=== PATIENT | female | born 1950 | race Caucasian/White ===

== ENCOUNTER → 2019-12-14 | Day surgery (SDC) | payer MEDICARE, OTHER ==
[~2019-12-14] MED LIST: AMLODIPINE BESYL5 MG PO; ASPERCREME LI76.5 GM TOP; ASPIRIN81 MG PO; BALANCED SALT SOLN (OPTH) 15 ML BTL IO ONE; CALCET TABLET1 EACH PO; CLOPIDOGREL75 MG PO; CO Q-10100 MG PO; CRESTOR10 MG PO; FENOFIBRATE145 MG PO; FISH OIL 1,2001 EAC1 PO; GAS RELIEF125 M1 PO; IBANDRONATE SO150 MG PO; ISOSORBIDE MONO30 MG PO; LAXATIVE5 M1 PO; LEVOTHYROXINE50 MCG PO; LIDOCAINE 2% /EPINEPHRINE 20 ML SDV INJ ONE; LIDOCAINE HCL 2% LOCAL INJ 5 ML SDV VIAL INJ ONE; LORATADINE10 M1 PO; LOSARTAN POTAS100 MG PO; METOPROLOL SUCC50 MG PO; METOPROLOL TART25 MG PO; MIDAZOLAM HCL 2 MG/2 ML VIAL ONE; MULTI-VITAMIN1 EACH PO; NEOMYCIN/POLYMYXIN/DEX (OPTH) 3.5 GM TUBE ONE; NITROGLYCERIN0.4 MG SL; NORCO 10-325 T1 EACH PO; POVIDONE IODINE 5% (OPTH) 30 ML BTL ONE; RANITIDINE HCL150 M1 PO; SERTRALINE HCL50 MG PO; STOOL SOFTENER100 M1 PO; VITAMIN B-121000 MC2 PO; VITAMIN D400 UNI1 PO; VITAMIN E400 UNI2 PO; [UNRECOGNIZED DRUG - OTHER] TOP
[2019-12-14 15:57] VITALS: BP 131/69
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
--- OUTSIDE RECORDS SUMMARY | 2019-12-14 19:35 | XMS REPORT | Encounter Summary ---
Author Organization Unknown Address [address] [place] [address] Phone [phone] Reason for Visit Follow Up Visit Instructions 1. Serous otitis media tympanogram prednisone 10 mg tablet 2. Hearing loss 3. Otalgia 4. Tinnitus 5. Allergic rhinitis 6. Nasal obstruction Discussion Note: None recorded. Patient educational handouts: No information available. Plan of Care Patient Instructions Patient discharged with the following per Dr. Jay Arrange hearing test Follow up in 1-2 weeks for left ear tube If any other problems patient is to call my office Patient verbalized understanding the instructions given along with my office staff Reminders Provider Appointments Hearing Test 11/13/2018 8:00AM Hearing Test, Lab None recorded. Referral None recorded. Procedures None recorded. Surgeries None recorded. Imaging Tympanogram 10/30/2018 In-House Results Medications Name Start Date Aspirin Low Dose 81 mg tablet,delayed release Take 1 tablet every day by oral route. chlorhexidine gluconate 0.12 % mouthwash clopidogrel 75 mg tablet fenofibrate nanocrystallized 145 mg tablet fluticasone 50 mcg/actuation nasal spray,suspension [place] 1 spray twice a day by intranasal route for 30 days. hydrocodone 7.5 mg-acetaminophen 325 mg tablet isosorbide mononitrate ER 30 mg tablet,extended release 24 hr levothyroxine 50 mcg tablet lisinopril 10 mg-hydrochlorothiazide 12.5 mg tablet lorazepam 1 mg tablet metoprolol succinate ER 25 mg tablet,extended release 24 hr [place] 25 mg tablet nitroglycerin 0.4 mg sublingual tablet [place] 0.7 % eye drops prednisone 10 mg tablet TAKE 1 TABLET TWICE A DAY FOR 7 DAYS THEN ONCE A DAY FOR 7 DAYS sertraline 50 mg tablet Ventolin HFA 90 mcg/actuation aerosol inhaler Medications Administered None recorded. Vitals Height Weight BMI 5 ft 144 lbs 28.1 kg/m2 Lab Results Date Name Specimen Result Interpretation Description Value Range Status Address 10/30/2018 Tympanogram Right Type A Normal In-House Results: For Internal Use Only Left Type C Peak is on Left In-House Results: For Internal Use Only Allergies Code Code System Name Reaction Severity Status Onset 20331211 RxNorm Fortaz Active 677366 RxNorm Lipitor Facial Swelling Active 546440 RxNorm Mevacor Nausea Active 8640 RxNorm Prednisone Nausea Active Problems None recorded. Procedures Date Name Performed by 06/10/2010 Nasal Surgery Information not available Remove Tonsils and Adenoids Information not available Cataract Surgery Complex Information not available Removal of Tonsils Information not available Ear Surgery Information not available Heart Surgery Information not available 10/30/2018 Tympanogram In-House Results For Internal Use Only [address] Vaccine List None recorded. Social History Smoking Status Never Smoker Past Encounters 10/30/2018 Serous Otitis Media; Hearing Loss; Otalgia; Tinnitus; Allergic Rhinitis; Nasal Obstruction Julia Jay MD: [address] [place] [address], [address], [place] [address], Ph. History of Present Illness None recorded. Review of Systems ENT ROS Reported By: Patient ENMT: ENMT: ear pain, hearing loss, sinus pressure, runny nose Physical Exam None recorded.
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
--- OUTSIDE RECORDS SUMMARY | 2019-12-14 19:35 | XMS REPORT | Encounter Summary ---
Author Organization Unknown Address [address] [place] [address] Phone [phone] Reason for Visit congestion; fever; cough / wheezing Instructions 1. Influenza-like symptoms rapid flu (A+B) CBC w/ auto diff promethazine 6.25 mg-codeine 10 mg/5 mL syrup Discussion Note: None recorded. Patient educational handouts: No information available. Plan of Care Reminders Provider Appointments Follow up 04/01/2019 9:45AM Julia Jay MD Lab Rapid Flu (A+B) 01/21/2019 In-House Results CBC W/ Auto Diff 01/21/2019 [facility] (Lab) Referral None recorded. Procedures None recorded. Surgeries None recorded. Imaging None recorded. Medications Name Start Date Aspirin Low Dose 81 mg tablet,delayed release Take 1 tablet every day by oral route. Ciprodex 0.3 %-0.1 % ear drops,suspension INSTILL 4 DROPS INTO AFFECTED EAR(S) BY OTIC ROUTE 2 TIMES PER DAY FOR 7 DAYS clopidogrel 75 mg tablet fenofibrate nanocrystallized 145 mg tablet fluticasone propionate 50 mcg/actuation nasal spray,suspension [place] 1 spray twice a day by intranasal route for 30 days. isosorbide mononitrate ER 30 mg tablet,extended release 24 hr levothyroxine 50 mcg tablet lisinopril 10 mg-hydrochlorothiazide 12.5 mg tablet lorazepam 1 mg tablet metoprolol succinate ER 25 mg tablet,extended release 24 hr nitroglycerin 0.4 mg sublingual tablet Pazeo 0.7 % eye drops promethazine 6.25 mg-codeine 10 mg/5 mL syrup Take 5 mL every 6 hours by oral route. TAKE NEEDED FOR COUGH AND HEADACHE sertraline 50 mg tablet Ventolin HFA 90 mcg/actuation aerosol inhaler Medications Administered None recorded. Vitals Height Weight BMI Blood Pressure 60 in 143 lbs 27.9 kg/m2 137/83 mm[Hg] Lab Results None recorded. Allergies Code Code System Name Reaction Severity Status Onset 20331211 RxNorm Fortaz Active 172938 RxNorm Lipitor Facial Swelling Active 880537 RxNorm Mevacor Nausea Active 8640 RxNorm Prednisone Nausea Active Problems Name Status Onset Date Source Influenza-like Symptoms Active 01/21/2019 Procedures Date Name Performed by 06/10/2010 Nasal Surgery Information not available Remove Tonsils and Adenoids Information not available Cataract Surgery Complex Information not available Removal of Tonsils Information not available Ear Surgery Information not available Heart Surgery Information not available Vaccine List Vaccine Type influenza, injectable, quadrivalent 08/12/2019 Social History Smoking Status Never Smoker Past Encounters 01/21/2019 Influenza-like Symptoms Ivan Machado MD: [address] [place] [address], [address], [place] [address], Ph. History of Present Illness Note:CC HEADACHE AND 103 FEVER<div>HPI STARTED LAST NIGHT HAS HAD A COUGH FOR A FEW DAYS DEVELOPED A RASH AFTER TAKING A HOT BATH </div><div>ROS</div><div>GEN ABOVE</div><div>CV NO CP</div><div>RESP SLIGHT COUGH</div><div>M/S MYALGIAS</div > Review of Systems:ROS as noted in the HPI Review of Systems None recorded. Physical Exam Dr. Machado Brief Adult Exam - M/F Reported By: Patient Constitutional: General Appearance: healthy-appearing, well-nourished, well-developed. Level of Distress: mild distress, acutely ill. Ambulation: ambulating normally ENMT: Ears: no lesions on external ear, EACs clear, TMs clear, TM mobility normal. Nose: nares patent, nasal passages clear. Oropharynx: moist mucous membranes, no erythema, no exudates, tonsils not enlarged Lungs: Auscultation: breath sounds normal, good air movement, CTA except as noted, no wheezing, no rales/crackles, no rhonchi Cardiovascular: Heart Auscultation: RRR, no rubs Skin: Inspection and palpation: ; VIRAL EXANTHAM ON BOTH PRETIBIAL AREAS
--- OUTSIDE RECORDS SUMMARY | 2019-12-14 19:35 | XMS REPORT | Encounter Summary ---
Author Organization Unknown Address [address] [place] [address] Phone [phone] Reason for Visit Follow Up Visit Instructions 1. Otitis externa 2. Otalgia Ciprodex 0.3 %-0.1 % ear drops,suspension 3. Tinnitus tympanogram Discussion Note: None recorded. Patient educational handouts: No information available. Plan of Care Patient Instructions Patient discharged with the following instructions per Dr. Jay Patient is to keep the left ear dry while showering no water or shampoo to enter the ear Use Ciprodex ear drops bid for 1 week in the right ear Follow up 4 month If symptoms are still persistent mother is to call the office Patient verbalized understanding the instructions given along with my office Reminders Provider Appointments Follow up 04/01/2019 9:45AM Julia Jay MD Lab None recorded. Referral None recorded. Procedures None recorded. Surgeries None recorded. Imaging Tympanogram 12/10/2018 In-House Results Medications Name Start Date Aspirin Low Dose 81 mg tablet,delayed release Take 1 tablet every day by oral route. chlorhexidine gluconate 0.12 % mouthwash Ciprodex 0.3 %-0.1 % ear drops,suspension INSTILL 4 DROPS INTO AFFECTED EAR(S) BY OTIC ROUTE 2 TIMES PER DAY FOR 7 DAYS clopidogrel 75 mg tablet fenofibrate nanocrystallized 145 mg tablet fluticasone 50 mcg/actuation nasal spray,suspension [place] 1 spray twice a day by intranasal route for 30 days. hydrocodone 7.5 mg-acetaminophen 325 mg tablet isosorbide mononitrate ER 30 mg tablet,extended release 24 hr levothyroxine 50 mcg tablet lisinopril 10 mg-hydrochlorothiazide 12.5 mg tablet lorazepam 1 mg tablet metoprolol succinate ER 25 mg tablet,extended release 24 hr [place] 25 mg tablet nitroglycerin 0.4 mg sublingual tablet Pazeo 0.7 % eye drops sertraline 50 mg tablet Ventolin HFA 90 mcg/actuation aerosol inhaler Medications Administered None recorded. Vitals Height Weight BMI 5 ft 144 lbs 28.1 kg/m2 Lab Results Date Name Specimen Result Interpretation Description Value Range Status Address 11/13/2018 Tympanogram Right Type A Normal In-House Results: For Internal Use Only Left Type B Curve Flat In-House Results: For Internal Use Only Tympanogram Right Type A Normal In-House Results: For Internal Use Only Allergies Code Code System Name Reaction Severity Status Onset 20331211 RxNorm Fortaz Active 512927 RxNorm Lipitor Facial Swelling Active 101717 RxNorm Mevacor Nausea Active 8640 RxNorm Prednisone Nausea Active Problems No Known Problems Procedures Date Name Performed by 06/10/2010 Nasal Surgery Information not available Remove Tonsils and Adenoids Information not available Cataract Surgery Complex Information not available Removal of Tonsils Information not available Ear Surgery Information not available Heart Surgery Information not available 11/13/2018 Tympanogram In-House Results For Internal Use Only [address] 12/10/2018 Tympanogram In-House Results For Internal Use Only [address] Vaccine List None recorded. Social History Smoking Status Never Smoker Past Encounters 12/10/2018 Otitis Externa; Otalgia; Tinnitus Julia Jay MD: [address] [facility], [address], [place] [address], Ph. 11/13/2018 Serous Otitis Media; Hearing Loss; Otalgia; Tinnitus; Allergic Rhinitis; Nasal Obstruction Julia Jay MD: [address] [facility], [address], [place] [address], Ph. History of Present Illness None recorded. Review of Systems ENT ROS Reported By: Patient ENMT: ENMT: ear pain, hearing loss, sinus pressure, runny nose; Tube still present in left ear Physical Exam None recorded.
--- OUTSIDE RECORDS SUMMARY | 2019-12-14 19:35 | XMS REPORT | Encounter Summary ---
Author Organization Unknown Address [address] [place] [address] Phone [phone] Reason for Visit Follow Up Visit Instructions 1. Serous otitis media 2. Hearing loss 3. Otalgia 4. Tinnitus tympanogram 5. Allergic rhinitis 6. Nasal obstruction Discussion Note: None recorded. Patient educational handouts: No information available. Plan of Care Patient Instructions Patient discharged with the following per Dr. Jay Patient is to keep the ear dry while showering no water or shampoo to enter the ear Use Ciprodex or Vinegar as needed Follow up in 2-3 months If any other problems patient is to call my office Patient verbalized understanding the instructions given along with my office staff Reminders Provider Appointments Follow up 02/11/2019 9:30AM Julia Jay MD Lab None recorded. Referral None recorded. Procedures None recorded. Surgeries None recorded. Imaging Tympanogram 11/13/2018 In-House Results Medications Name Start Date Aspirin Low Dose 81 mg tablet,delayed release Take 1 tablet every day by oral route. chlorhexidine gluconate 0.12 % mouthwash clopidogrel 75 mg tablet fenofibrate nanocrystallized 145 mg tablet fluticasone 50 mcg/actuation nasal spray,suspension [place] 1 spray twice a day by intranasal [...] recorded. Vitals Height Weight BMI 5 ft 143.4 lbs 28 kg/m2 Lab Results Date Name Specimen Result Interpretation Description Value Range Status Address 11/13/2018 Tympanogram Right Type A Normal In-House Results: For Internal Use Only Left Type B Curve Flat In-House Results: For Internal Use Only 10/30/2018 Tympanogram Right Type A Normal In-House Results: For Internal Use Only Left Type C Peak is on Left In-House Results: For Internal Use Only Allergies Code Code System Name Reaction Severity Status Onset 540784 RxNorm Fortaz Active 985967 RxNorm Lipitor Facial Swelling Active 602548 RxNorm Mevacor Nausea Active 8640 RxNorm Prednisone Nausea Active Problems None recorded. Procedures Date Name Performed by 06/10/2010 Nasal Surgery Information not available Remove Tonsils and Adenoids Information not available Cataract Surgery Complex Information not available Removal of Tonsils Information not available Ear Surgery Information not available Heart Surgery Information not available 10/30/2018 Tympanogram In-House Results For Internal Use Only [address] 11/13/2018 Tympanogram In-House Results For Internal Use Only [address] Vaccine List None recorded. Social History Smoking Status Never Smoker Past Encounters 11/13/2018 Serous Otitis Media; Hearing Loss; Otalgia; Tinnitus; Allergic Rhinitis; Nasal Obstruction Julia Jay MD: [address] [facility], [address], [place] [address], Ph. 10/30/2018 Serous Otitis Media; Hearing Loss; Otalgia; Tinnitus; Allergic Rhinitis; Nasal Obstruction Julia Jay MD: [address] [facility], [address], [place] [address], Ph. History of Present Illness None recorded. Review of Systems ENT ROS Reported By: Patient ENMT: ENMT: ear pain, hearing loss, sinus pressure, runny nose Physical Exam ENT Exam [facility] Focus-No Stethoscope Reported By: Patient Ears: Right Hearing: Rinne AC>BC, Wilcox midline. Left Hearing: Rinne AC>BC, Wilcox midline. Right External ear: normally formed, free of lesions. Left External ear: normally formed, free of lesions. Right External auditory canal: normal appearance, no obstruction, no erythema, no discharge. Left External auditory canal: normal appearance, no obstruction, no erythema, no discharge. Right Tympanic membrane: mobile with pneumatic otoscopy, pearly landry, landmarks clear. Left Tympanic membrane: landmarks clear, erythematous, retracted, dull, serous effusion, mobility decreased
--- OUTSIDE RECORDS SUMMARY | 2019-12-14 19:35 | XMS REPORT ---
Author Author [facility] Address Unknown Phone Unavailable Care Team Providers Care Equal Opportunity Counselor Name Role Phone Nahum Anne Unavailable Unavailable Problems This patient has no known problems. Allergies, Adverse Reactions, Alerts This patient has no known allergies or adverse reactions. Medications This patient has no known medications. Results Test Description Test Time Test Comments Text Results Atomic Results Result Comments Comprehensive metabolic panel 2016-12-04 14:18:00 Sodium level (test cfcz=RXR3089) 141 meq/L 135-145 4.9 Chloride measurement (test oope=BZX2953) 107 meq/L 101-111 Bicarbonate (test code=CO2) 29 meq/L 21-31 Glucose measurement (test wary=UUK2847) 98 mg/dL 65-120 ADA Clinical Practice Recommendation: <100 mg/dl=Normal Fasting Glucose BUN Bld-mCnc (test fkty=7376-9) 11 mg/dL 6-20 Creatinine measurement (test abxd=FGW2955) 0.77 mg/dL 0.44-1.00 The creatinine method used has been calibrated to be traceable to Isotope dilution Mass Spectrometry (IDMS). For more information: www.nkdep.nih.gov Estimated glomerular filtration rate (GFR) determination (test pujc=68723-5) 75 mL =/>90 FOR CHRONIC KIDNEY DISEASE: GFR STAGE DESCRIPTION=/>90 STAGE 1 NORMAL--OR-- MINIMAL KIDNEY DAMAGE WITH NORMAL GFR 60-89 STAGE 2 MILD DECREASE IN GFR 30-59 STAGE 3 MODERATE DECREASE IN GFR 15-29 STAGE 4 SEVERE DECREASE IN GFR <15 STAGE 5 KIDNEY FAILURE The Glomerular Filtration Rate (GFR) has been calculated using the IDMS-Traceable MDRD Study Equation. Aspartate aminotransferase (AST) measurement (test ktto=OOE7155) 22 [iU]/L 10-42 ALT/SGPT (test code=SGPT) 18 [iU]/L 10-60 Alkaline Phosphatase (test code=ALK) 49 [iU]/L 42-121 Bilirubin total (test ttkm=RDV6059) 0.6 mg/dL 0.3-1.2 Calcium Level (test code=CA) 9.8 mg/dL 8.5-10.5 Serum total protein measurement (test wvrj=0997-1) 6.8 g/dL 6.0-8.3 Albumin measurement (test bvbl=BTV9168) 4.4 g/dL 3.2-5.5 Globulin (test code=GLOB) 2.4 g/dL 2.3-3.5 Albumin/Globulin Ratio (test code=A/G) 1.8 1.1-1.8 Amylase [id number] 14:18:00* Test Item Value Reference Range Comments Amylase measurement (test qlkq=DYN9620) 77 U/L 28-100 Lipase [id number] 14:18:00* Test Item Value Reference Range Comments Lipase measurement (test dbas=5874-5) 27 U/L 22-51 Complete blood count (CBC) with automated white blood cell (WBC) differential 2016-12-04 13:53:00* Test Item Value Reference Range Comments White blood cell count (test umai=DVS2675) 6.5 4.3-10.9 Blood erythrocytes count (number/volume) (test jzsn=10988-2) 4.40 M/ul 3.86-4.86 Hemoglobin measurement (test jpsv=KBV1756) 13.0 g/dL 12.0-15.0 Blood hematocrit (volume fraction) (test cnec=31208-7) 39.7 % 36.0-45.0 MCV (test code=MCV) 90.2 fL 80-100 MCH (test xlmw=83254-2) 29.5 pg 27.0-35.0 MCHC (test code=MCHC) 32.8 g/dL 32.0-36.0 Platelets (test code=PLT) 274 152-406 Red Cell Distribution Width (test code=RDW) 13.4 % 12.1-15.2 Blood platelet mean volume (test jeij=46680-1) 8.4 fL 7.6-11.3 Neutrophils % (test code=NIKOLAI%) 51.4 % 41.7-73.7 Lymphocytes/leuk NFr Bld (test oxta=27173-5) 36.3 % 15.3-44.8 Monocyte percentage (test crtu=8235-4) 6.5 % 3.3-12.3 Eosinophil % (test vfdj=745-1) 4.8 % 0-4.4 Basophil % (test jvvk=209-0) 1.0 % 0-1.3 Absolute neutrophil count (test cgui=152-4) 3.3 2.3-7.0 Absolute lymphocyte count (test qjgl=80166-6) 2.3 0.8-3.6 Absolute monocyte count (test hlji=188-2) 0.4 0.2-0.8 Absolute Eosinophils (test code=EOA) 0.3 0-0.4 Absolute Basophils (test code=BASA) 0.1 0-0.1 Erythrocyte sedimentation rate (ESR) by Westergren [id number] 13:53:00* Test Item Value Reference Range Comments Erythrocyte sedimentation rate (ESR) by Westergren method (test mbcr=3758-8) 11 mm/HR 0-30
--- OUTSIDE RECORDS SUMMARY | 2019-12-14 19:36 | XMS REPORT | Summary of Care ---
Author Author [facility] - Health Organization [facility] - Health Address Unknown Phone Unavailable Care Team Providers Care [employer] Name Role Phone Arleen Jimenez MD PCP Reason for Visit * Reason Comments Medicare Annual Wellness LAB WORK Encounter Details Care Team Description Date Type Department Catia Ji, [facility] [address] [address] Medicare annual wellness visit, initial (Primary Dx) 06/18/2019 Office Visit [facility] [address] [id number] Allergies Comments Active Allergy Reactions Severity Noted Date Diclofenac-Misoprostol Unknown - See 06/14/2016 comments Liquid only Codeine Nausea and/or 06/14/2016 Vomiting Doxycycline Swelling 09/10/2018 Severe stomach pain Bisacodyl Other - See High 09/11/2018 comments Ceftazidime Unknown - See 06/14/2016 comments Muscle problems Atorvastatin Calcium Unknown - See 06/14/2016 comments Gemfibrozil Swelling 06/14/2016 Muscle aches Lovastatin Unknown - See 06/14/2016 comments Budesonide-Formoterol Swelling 09/10/2018 documented as of this encounter (statuses as of 06/18/2019) Medications End Date Status Medication Sig Dispensed Refills Start Date Active aspirin (ASPIRIN LOW Take 81 mg by 0 DOSE) 81 mg EC tablet mouth daily. Active DOCOSAHEXANOIC ACID/EPA Take by 0 (FISH OIL ORAL) mouth. Active MULTIVITAMIN WITH Take by 0 MINERALS (MULTIVITAMIN & mouth. MINERAL FORMULA ORAL) Active ranitidine (ZANTAC) 150 Take 150 mg 0 mg capsule by mouth 2 (two) times daily. Active clopidogrel (PLAVIX) 75 Take 1 tablet 90 tablet 1 mg tablet by mouth 6 daily. Active fluticasone 50 Use in each 0 mcg/actuation nasal spray nostril daily. Active vitamin e 400 unit Take 400 0 capsule Units by mouth daily. Active loratadine 10 mg tablet Take 10 mg by 0 mouth daily. Active lisinopril-hydrochlorothi Take 1 tablet 0 azide 10-12.5 mg per by mouth tablet daily. Active nitroglycerin 0.[address] 0.4 mg 0 sublingual tablet under the tongue every 5 (five) minutes as needed for Chest pain. Active olopatadine HCl (PAZEO Place in 0 OPHTHALMIC) each eye. Active guaifenesin/dextromethorp Take by 0 miles (MUCUS RELIEF DM mouth. ORAL) Active albuterol 90 Inhale 2 1 Inhaler 0 mcg/actuation inhaler Puffs every 6 8 (six) hours as needed for Wheezing or Shortness of Breath. Active metoprolol succinate XL Take 50 mg by 0 50 mg 24 hr tablet mouth daily. Active isosorbide mononitrate 60 Take 60 mg by 0 mg 24 hr tablet mouth 2 (two) times daily. Active LEVOTHYROXINE 50 mcg TAKE 1 TABLET 90 tablet 1 tablet EVERY MORNING 9 Active conjugated estrogens Insert 1 g 30 g 1 0.625 mg/gram vaginal into vagina 9 creamIndications: SEE-INSTRUCTI Postmenopausal atrophic ONS. Apply vaginitis small amount to vaginal opening 2-3 times a week. Active SERTRALINE 50 mg TAKE 1 TABLET 90 tablet 1 tabletIndications: DAILY 9 Agitation, Irritability Active coenzyme Q10 (COQ-10) 100 Take 1 30 capsule 5 mg softgelIndications: capsule by 9 Hypercholesterolemia mouth daily. Active LORazepam 1 mg 1-2 tablets 2 tablet 0 tabletIndications: by mouth once 9 History of claustrophobia now for 1 dose. 1 hour prior to MRI. Active rosuvastatin 5 mg tablet Take 5 mg by 0 mouth daily. Active methocarbamol 750 mg Take 750 mg 0 tablet by mouth 4 (four) times daily. 06/18/2019 Discontinued terconazole 0.8 % vaginal Insert 1 20 g 0 creamIndications: Applicator 9 Postmenopausal atrophic into vagina vaginitis at bedtime. 1 applicator into vagina at bedtime for 3 nights 06/18/2019 Discontinued predniSONE 10 mg 2 tabs po 7 tablet 0 tabletIndications: daily x 2 9 Generalized rash days, 1 tabs po daily x 2 days, 0.5 tab po qdaily x 2 days then stop, Take with food 06/18/2019 Discontinued hydrOXYzine 25 mg Take 1-2 30 tablet 0 tabletIndications: tablets by 9 Generalized rash mouth every 8 (eight) hours as needed for Itching. 06/18/2019 Discontinued pantoprazole 40 mg EC pantoprazole 0 tablet 40 mg tablet,delaye d release 06/18/2019 Discontinued baclofen 10 mg Take 0.5-1 30 tablet 0 tabletIndications: Muscle tablets by 9 cramps, Myalgia mouth 3 (three) times daily as needed (muscle pain or spasm). 06/18/2019 Discontinued ezetimibe 10 mg Take 1 tablet 30 tablet 5 tabletIndications: by mouth 9 Hypercholesterolemia daily. documented as of this encounter (statuses as of 06/18/2019) Active Problems Problem Noted Date Thrombocytosis 01/13/2019 Chronic headaches 12/14/2018 H/O: hysterectomy 09/11/2018 B12 deficiency 06/22/2018 Prediabetes 12/11/2017 Abnormal liver function test 12/11/2017 Vaginal atrophy 08/15/2017 Postmenopausal 08/15/2017 Osteopenia 07/23/2017 Overview: Bilateral hips Pulmonary nodules 07/23/2017 Microscopic hematuria 07/23/2017 Chronic sinusitis 10/15/2016 Coronary artery disease 06/14/2016 Carotid artery disease 06/14/2016 S/P CABG x 2 06/14/2016 H/O carotid endarterectomy 06/14/2016 Mixed hyperlipidemia 06/14/2016 Hypothyroidism (acquired) 06/14/2016 Chronic lower back pain 06/14/2016 Chronic neck pain 06/14/2016 Allergic rhinitis, seasonal 06/14/2016 GERD (gastroesophageal reflux disease) 06/14/2016 Vitamin D deficiency 06/14/2016 Heart murmur 06/14/2016 Essential hypertension 06/14/2016 documented as of this encounter (statuses as of 06/18/2019) Resolved Problems Problem Noted Date Resolved Date Therapeutic opioid induced constipation 07/21/2017 01/13/2019 Right hip pain 06/14/2016 01/13/2019 documented as of this encounter (statuses as of 06/18/2019) Immunizations Name Administration Dates Next Due Influenza Virus Vaccine 07/29/2017 Pneumococcal 13 10/18/2016 Conjugate, PCV13 (Prevnar 13) Pneumococcal 07/24/2017 Polysaccharide, PPSV23 (PNEUMOVAX) Zoster(Zostavax)(Shingles 04/18/2015 ) documented as of this encounter Social History Date Tobacco Use Types Packs/Day Years Used Quit: 08/15/2013 Former Smoker Cigarettes Smokeless Tobacco: Former User Comments: Quit in 2011 Drinks/Week oz/Week Comments Alcohol Use 0 Standard drinks or equivalent 0.0 once a year Yes Sex Assigned at Date Recorded Not on file Industry Job Start Date Occupation Not on file Not on file Not on file Travel End Travel History Travel Start No recent travel history available. documented as of this encounter Last Filed Vital Signs Reading Time Taken Comments Vital Sign - - Blood Pressure 59 06/18/2019 1:27 PM CDT Pulse 36.3 C (97.3 F) 06/18/2019 1:27 PM CDT Temperature - - Respiratory Rate 97% 06/18/2019 1:27 PM CDT Oxygen Saturation - - Inhaled Oxygen Concentration 65.3 kg (144 lb) 06/18/2019 1:27 PM CDT Weight 152.4 cm (5') 06/18/2019 1:27 PM CDT Height 28.12 06/18/2019 1:27 PM CDT Body Mass Index documented in this encounter Progress Notes * Catia Ji FNP - 06/18/2019 1:40 PM CDT CC: FIRST ANNUAL WELLNESS VISIT (AWV) THUY Le is a 68 year old female is here for her FIRST ANNUAL WELLNESS VISIT (AWV). Patient Care Team: Arleen Jimenez MD as PCP - General ([facility]) List additional current known providers and DME suppliers: None HISTORY Past Medical History: Diagnosis Date Allergic rhinitis Arthritis B12 deficiency 06/22/2018 Carotid artery disease 06/14/2016 Chronic headaches 12/14/2018 Clotting disorder blood thinners Coronary artery disease 06/14/2016 Esophageal reflux Heart murmur History of smoking Hyperlipidemia Hypertension Osteopenia Prediabetes 12/11/2017 Pulmonary nodules 07/23/2017 Superficial thrombophlebitis Therapeutic opioid induced constipation 07/21/2017 Thrombocytosis 01/13/2019 Thyroid disease Past Surgical History: Procedure Laterality Date ANGIOPLASTY 1986 & 1987 CABG, VEIN, TWO 2002 CAROTID ENDARTERECTOMY Bilateral 2001 (L), 2003 (R) COLONOSCOPY 12/04/2016 + polyps, 3 year follow-up recommended, Dr. Anne ETHMOIDECTOMY Left 2009 [place] REMV CATARACT EXTRACAP,INSERT LENS Bilateral 05/28/16, 06/11/16 RADICAL HYSTERECTOMY REPAIR OF NASAL SEPTUM 2009 SALPINGO-OOPHORECTOMY Left 1977 left side Family History Problem Relation Age of Onset Cancer Mother brain tumor Kidney disease Father Cancer Father unknown Heart Sister Hypertension Sister No Significant Medical Problems Brother Breast Cancer Maternal Aunt age unknown Breast Cancer Maternal Grandmother age unknown Breast Cancer Other Arthritis NoFHx Asthma NoFHx defects NoFHx Colon Cancer NoFHx Ovarian Cancer NoFHx Uterine Cancer NoFHx Depression NoFHx Diabetes NoFHx Genetic NoFHx High cholesterol NoFHx Mental retardation NoFHx Neurological NoFHx Osteoporosis NoFHx Psychiatry NoFHx Other - see comments NoFHx Social History Tobacco Use Smoking status: Former Smoker Types: Cigarettes Last attempt to quit: 08/15/2013 Years since quittin.8 Smokeless tobacco: Former User Tobacco comment: Quit in 2011 Substance Use Topics Alcohol use: Yes Alcohol/week: 0.0 oz Comment: once a year Social History Substance and Sexual Activity Drug Use No Social History Substance and Sexual Activity Sexual Activity Never Allergies Allergen Reactions Dulcolax [Bisacodyl] Other - See comments Severe stomach pain Arthrotec 50 [Diclofenac-Misoprostol] Unknown - See comments Codeine Nausea and/or Vomiting Liquid only Doxycycline Swelling Fortaz [Ceftazidime] Unknown - See comments Lipitor [Atorvastatin Calcium] Unknown - See comments Muscle problems Lopid [Gemfibrozil] Swelling Mevacor [Lovastatin] Unknown - See comments Muscle aches Symbicort [Budesonide-Formoterol] Swelling Current Outpatient Medications: methocarbamol 750 mg tablet, Take 750 mg by mouth 4 (four) times daily., Di sp: , Rfl: rosuvastatin 5 mg tablet, Take 5 mg by mouth daily., Disp: , Rfl: LORazepam 1 mg tablet, 1-2 tablets by mouth once now for 1 dose. 1 hour simona or to MRI., Disp: 2 tablet, Rfl: 0 coenzyme Q10 (COQ-10) 100 mg softgel, Take 1 capsule by mouth daily., Disp: 30 capsule, Rfl: 5 SERTRALINE 50 mg tablet, TAKE 1 TABLET DAILY, Disp: 90 tablet, Rfl: 1 conjugated estrogens 0.625 mg/gram vaginal cream, Insert 1 g into vagina SE E-INSTRUCTIONS. Apply small amount to vaginal opening 2-3 times a week., Disp: 3 0 g, Rfl: 1 LEVOTHYROXINE 50 mcg tablet, TAKE 1 TABLET EVERY MORNING, Disp: 90 tablet, Rfl: 1 isosorbide mononitrate 60 mg 24 hr tablet, Take 60 mg by mouth 2 (two) time s daily., Disp: , Rfl: metoprolol succinate XL 50 mg 24 hr tablet, Take 50 mg by mouth daily., Dis p: , Rfl: albuterol 90 mcg/actuation inhaler, Inhale 2 Puffs every 6 (six) hours as n eeded for Wheezing or Shortness of Breath., Disp: 1 Inhaler, Rfl: 0 guaifenesin/dextromethorphan (MUCUS RELIEF DM ORAL), Take by mouth., Disp: , Rfl: lisinopril-hydrochlorothiazide 10-12.5 mg per tablet, Take 1 tablet by mout h daily., Disp: , Rfl: nitroglycerin 0.4 mg sublingual tablet, Place 0.4 mg under the tongue every 5 (five) minutes as needed for Chest pain., Disp: , Rfl: olopatadine HCl (PAZEO OPHTHALMIC), Place in each eye., Disp: , Rfl: fluticasone 50 mcg/actuation nasal spray, Use in each nostril daily., Disp : , Rfl: loratadine 10 mg tablet, Take 10 mg by mouth daily., Disp: , Rfl: vitamin e 400 unit capsule, Take 400 Units by mouth daily., Disp: , Rfl: aspirin (ASPIRIN LOW DOSE) 81 mg EC tablet, Take 81 mg by mouth daily., Dis p: , Rfl: clopidogrel (PLAVIX) 75 mg tablet, Take 1 tablet by mouth daily., Disp: 90 tablet, Rfl: 1 DOCOSAHEXANOIC ACID/EPA (FISH OIL ORAL), Take by mouth., Disp: , Rfl: MULTIVITAMIN WITH MINERALS (MULTIVITAMIN & MINERAL FORMULA ORAL), Take by mouth., Disp: , Rfl: ranitidine (ZANTAC) 150 mg capsule, Take 150 mg by mouth 2 (two) times mckayla y., Disp: , Rfl: - Depression and Other Mood Disorder Assessment Is the patient under current treatment for depression or other mood disorder? Yes. Specify: she is zoloft and stable on the dose. Being followed by Dr. Palacios rt. No suicidal or homicidal ideation. PHQ-2: Over the last 2 weeks, how often have you been bothered by any of the fol lowing problems? Little interest or pleasure in doing things: (!) 3 Feeling down, depressed, or hopeless: (!) 1 PHQ-2 Score (_/6): (!) 4 - Opioid Risk Assessment Is the patient on chronic opioid pain medication? No Is the patient identified as at risk for opioid use disorder (personal or family history of substance use disorder or personal history of mental illness)? No How many times in the past year have you used an illegal drug or a prescription medication for nonmedical reasons?: Never - Hearing Impairment Assessment Do you think you have a hearing problem?: No - Activities of Daily Living Assessment Bathing: Independent Dressing: Independent Feeding: Independent Using the toilet: Independent Grooming (brushing teeth or hair): Independent Getting around the house: Independent - Home Safety Assessment Are firearms stored unloaded and securely locked?: N/A Do you have working smoke alarms and a fire extinguisher available for use?: Yes Have throw rugs been removed or fastened down?: N/A Are electrical cords in working order, easily seen, and out of the walking path? : Yes Are non-slip mats in all bathtubs and showers?: Yes Do all stairways have a working rail or banister?: N/A Are doorways, walkways, and stairs free of clutter?: Yes In the places you walk outside, are there uneven surfaces, cracked sidewalks, sl ippery steps, or other problems that make you stumble?: (!) Yes Do you have good light when you walk into your house?: Yes If you were to fall and were unable to get up, would you be able to get help arlene ckly?: (!) No Do you slip or have difficulty getting on and off the toilet or in and out of th e bath or shower?: No Have you been known to leave the stove on or water running?: No -Fall Risk Assessment Have you fallen two or more times in the past year?: No Do you believe you have a gait or balance problem or are you afraid of falling?: No PHYSICAL EXAM BP 136/69 | Pulse 59 | Temp 36.3 C (97.3 F) (Oral) | Ht 5' (1.524 m) | W t 144 lb (65.3 kg) | SpO2 97% | BMI 28.12 kg/m - Cognitive Screen (Please complete preferred cognitive screen in Flowsheet [facility]) Six-Item Screener Can the patient repeat the three items immediately?: Yes States the correct Year.: Yes States the correct Month.: Yes States the correct day of the week.: Yes Recalls Apple: Yes Recalls Table: Yes Recalls Car: Yes Items Missed: 0 ASSESSMENT/PLAN After review of the HRA dated 06/18/2019 and assessment above, I have identified the following concerns: None Personalized health counseling provided through patient instructions ([facility] Adv[facility]) Health Maintenance Summary Status Date DTaP,Tdap,and Td Vaccines Overdue 1970 Zoster Recombinant Vaccine (SHINGRIX) Overdue 2001 PNEUMOCOCCAL VACCINES 65+ Overdue 07/24/2018 Done 10/18/2016 Imm Admin: Pneumococcal 13 Conjugate, PCV13 (Prevnar 13) Done 07/24/2013 Imm Admin: Pneumococcal Polysaccharide, PPSV23 (PNEUMOVAX) Medicare Wellness Visit Overdue 06/16/2019 Done 06/16/2018 LOS:G0439 [place] PPPS, SUBSEQ VISIT Done 06/16/2017 LOS:G0402 [place] INITIAL PREVENTIVE EXAM INFLUENZA VACCINE Next Due 07/11/2019 Done 07/29/2017 Imm Admin: Influenza Virus Vaccine MAMMOGRAM Next Due 07/31/2019 Done 07/31/2018 BI SCREENING MAMMOGRAM BILATERAL Done 07/21/2017 DIGITAL MAMMOGRAM, SCREENING LUNG CANCER SCREEN: Recommended for age 55-80 with 30 + pack year history Next Due 07/31/2019 Done 07/31/2018 CT LUNG CANCER SCREENING Done 07/21/2017 CT LUNG CANCER SCREENING - ASYMPTOMATIC Patient has more history with this topic... COLONOSCOPY Next Due 11/10/2024 Previously completed 11/10/2014 Osteoporosis Screening This plan is no longer active. Done 07/21/2017 DEXA-AXIAL HEPATITIS C (HCV) SCREEN This plan is no longer active. Done 01/05/2018 HCV ANTIBODY HCV Ab HCV Semi-Quantitative Done 12/11/2017 HCV ANTIBODY HCV Ab HCV Semi-Quantitative Recommended health maintenance schedule: up to date Were advanced care planning documents or end of life goals discussed during the visit? Yes. Specify: patient. Has Advanced directive and will bring a copy for the cli ann to keep in her file. Follow-up plan is as follows: None No orders of the defined types were placed in this encounter. Cc: Chief Complaint Patient presents with Medicare Annual Wellness Mimi Barclay is a 68 year old female. HPI Allergies Mimi is allergic to dulcolax [bisacodyl]; arthrotec 50 [diclofenac-misoprostol] ; codeine; doxycycline; fortaz [ceftazidime]; lipitor [atorvastatin calcium]; lo pid [gemfibrozil]; mevacor [lovastatin]; and symbicort [budesonide-formoterol]. Medications Outpatient Medications Prior to Visit Medication Sig Dispense Refill methocarbamol 750 mg tablet Take 750 mg by mouth 4 (four) times daily. rosuvastatin 5 mg tablet Take 5 mg by mouth daily. LORazepam 1 mg tablet 1-2 tablets by mouth once now for 1 dose. 1 hour prior to MRI. 2 tablet 0 coenzyme Q10 (COQ-10) 100 mg softgel Take 1 capsule by mouth daily. 30 capsu le 5 ezetimibe 10 mg tablet Take 1 tablet by mouth daily. 30 tablet 5 baclofen 10 mg tablet Take 0.5-1 tablets by mouth 3 (three) times daily as n eeded (muscle pain or spasm). 30 tablet 0 pantoprazole 40 mg EC tablet pantoprazole 40 mg tablet,delayed release hydrOXYzine 25 mg tablet Take 1-2 tablets by mouth every 8 (eight) hours as needed for Itching. 30 tablet 0 predniSONE 10 mg tablet 2 tabs po daily x 2 days, 1 tabs po daily x 2 days, 0.5 tab po qdaily x 2 days then stop, Take with food 7 tablet 0 SERTRALINE 50 mg tablet TAKE 1 TABLET DAILY 90 tablet 1 conjugated estrogens 0.625 mg/gram vaginal cream Insert 1 g into vagina SEE- INSTRUCTIONS. Apply small amount to vaginal opening 2-3 times a week. 30 g 1 terconazole 0.8 % vaginal cream Insert 1 Applicator into vagina at bedtime. 1 applicator into vagina at bedtime for 3 nights 20 g 0 LEVOTHYROXINE 50 mcg tablet TAKE 1 TABLET EVERY MORNING 90 tablet 1 isosorbide mononitrate 60 mg 24 hr tablet Take 60 mg by mouth 2 (two) times daily. metoprolol succinate XL 50 mg 24 hr tablet Take 50 mg by mouth daily. albuterol 90 mcg/actuation inhaler Inhale 2 Puffs every 6 (six) hours as nee ded for Wheezing or Shortness of Breath. 1 Inhaler 0 guaifenesin/dextromethorphan (MUCUS RELIEF DM ORAL) Take by mouth. lisinopril-hydrochlorothiazide 10-12.5 mg per tablet Take 1 tablet by mouth daily. nitroglycerin 0.[address] 0.4 mg under the tongue every 5 (five) minutes as needed for Chest pain. olopatadine HCl (PAZEO OPHTHALMIC) Place in each eye. fluticasone 50 mcg/actuation nasal spray Use in each nostril daily. loratadine 10 mg tablet Take 10 mg by mouth daily. vitamin e 400 unit capsule Take 400 Units by mouth daily. aspirin (ASPIRIN LOW DOSE) 81 mg EC tablet Take 81 mg by mouth daily. clopidogrel (PLAVIX) 75 mg tablet Take 1 tablet by mouth daily. 90 tablet 1 DOCOSAHEXANOIC ACID/EPA (FISH OIL ORAL) Take by mouth. MULTIVITAMIN WITH MINERALS (MULTIVITAMIN & MINERAL FORMULA ORAL) Take by mouth. ranitidine (ZANTAC) 150 mg capsule Take 150 mg by mouth 2 (two) times daily. No facility-administered medications prior to visit. Histories Past Medical History: Diagnosis Date Allergic rhinitis Arthritis B12 deficiency 06/22/2018 Carotid artery disease 06/14/2016 Chronic headaches 12/14/2018 Clotting disorder blood thinners Coronary artery disease 06/14/2016 Esophageal reflux Heart murmur History of smoking Hyperlipidemia Hypertension Osteopenia Prediabetes 12/11/2017 Pulmonary nodules 07/23/2017 Superficial thrombophlebitis Therapeutic opioid induced constipation 07/21/2017 Thrombocytosis 01/13/2019 Thyroid disease Past Surgical History: Procedure Laterality Date ANGIOPLASTY 1986 & 1987 CABG, VEIN, TWO 2002 CAROTID ENDARTERECTOMY Bilateral 2001 (L), 2004 (R) COLONOSCOPY 12/04/2016 + polyps, 3 year follow-up recommended, Dr. Anne ETHMOIDECTOMY Left 2009 [place] REMV CATARACT EXTRACAP,INSERT LENS Bilateral 05/28/16, 06/11/16 RADICAL HYSTERECTOMY REPAIR OF NASAL SEPTUM 2009 SALPINGO-OOPHORECTOMY Left 1977 left side Social History Socioeconomic History Marital status: Spouse name: Not on file Number of children: Not on file Years of education: Not on file Highest education level: Not on file Occupational History Comment: retired Social Needs Financial resource strain: Not on file Food insecurity: Worry: Not on file Inability: Not on file Transportation needs: Medical: Not on file Non-medical: Not on file Tobacco Use Smoking status: Former Smoker Types: Cigarettes Last attempt to quit: 08/15/2013 Years since quittin.8 Smokeless tobacco: Former User Tobacco comment: Quit in 2011 Substance and Sexual Activity Alcohol use: Yes Alcohol/week: 0.0 oz Comment: once a year Drug use: No Sexual activity: Never Lifestyle Physical activity: Days per week: Not on file Minutes per session: Not on file Stress: Not on file Relationships Social connections: Talks on phone: Not on file Gets together: Not on file Attends sikhism service: Not on file Active member of club or organization: Not on file Attends meetings of clubs or organizations: Not on file Relationship status: Not on file Intimate partner violence: Fear of current or ex partner: Not on file Emotionally abused: Not on file Physically abused: Not on file Forced sexual activity: Not on file Other Topics Concern Not on file Social History Narrative Lives alone. 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 Pentecostal Preference: Faith Denies domestic or physical violence within the home Family History Problem Relation Age of Onset Cancer Mother brain tumor Kidney disease Father Cancer Father unknown Heart Sister Hypertension Sister No Significant Medical Problems Brother Breast Cancer Maternal Aunt age unknown Breast Cancer Maternal Grandmother age unknown Breast Cancer Other Arthritis NoFHx Asthma NoFHx defects NoFHx Colon Cancer NoFHx Ovarian Cancer NoFHx Uterine Cancer NoFHx Depression NoFHx Diabetes NoFHx Genetic NoFHx High cholesterol NoFHx Mental retardation NoFHx Neurological NoFHx Osteoporosis NoFHx Psychiatry NoFHx Other - see comments NoFHx Review of Systems : Not Included with this visit Vital Signs BP 136/69 | Pulse 59 | Temp 36.3 C (97.3 F) (Oral) | Ht 5' (1.524 m) | W t 144 lb (65.3 kg) | SpO2 97% | BMI 28.12 kg/m Physical Exam: Not included with this visit Assessment/Plan 1. Medicare wellness with HRA completed Routine labs that are due ordered- This visit did not involve counseling and coordination that comprised more than 50% of the visit time. documented in this encounter Plan of Treatment Care Team Description Date Type Specialty Devin Hou MD [address] [place] [phone] 06/23/2019 Office Visit Orthopedic Surgery Tiffany Ponce MD [address] [place] [address] [address] [place] [place], [place] [id number] 09/22/2019 Office Visit Obstetrics & Gynecology Date/Time Name Type Priority Associated Diagnoses 06/18/2019 1:56 PM CDT THYROID STIMULATING LAB Routine Medicare annual wellness HORMONE visit, initial 06/18/2019 1:56 PM CDT GLYCOSYLATED HEMOGLOBIN LAB Routine Medicare annual wellness (A1C) visit, initial Health Maintenance Due Date Last Done Comments DTaP,Tdap,and Td Vaccines 1970 (1 - Tdap) Zoster Recombinant 06/13/2015 Vaccine (SHINGRIX) (1 of 2) Medicare Wellness Visit 06/16/2019 06/16/2018, 06/16/2017 INFLUENZA VACCINE 07/11/2019 07/29/2017 LUNG CANCER SCREEN: 07/31/2019 07/31/2018, 07/21/2017, 06/26/2016 Recommended for age 55-80 with 30 + pack year history MAMMOGRAM 07/31/2019 07/31/2018, 07/21/2017 PNEUMOCOCCAL VACCINES 65+ 07/24/2022 10/18/2016, 07/24/2013 (2 of 2 - PPSV23) COLONOSCOPY 11/10/2024 11/10/2014 (Previously completed) Osteoporosis Screening Completed 07/21/2017 HEPATITIS C (HCV) SCREEN Completed 01/05/2018, 12/11/2017 documented as of this encounter Procedures Comments Procedure Name Priority Date/Time Associated Diagnosis CBC WITH DIFFERENTIAL Routine 06/18/2019 Medicare annual wellness 1:56 PM CDT visit, initial CBC WITH DIFF Routine 06/18/2019 Medicare annual wellness 1:56 PM CDT visit, initial LIPID PANEL ([id number])(TOTAL Routine 06/18/2019 Medicare annual wellness CHOLESTEROL, 1:56 PM CDT visit, initial TRIGLYCERIDES, HDL) COMP. METABOLIC PANEL Routine 06/18/2019 Medicare annual wellness (12423) 1:56 PM CDT visit, initial documented in this encounter Results * CBC WITH DIFFERENTIAL (06/18/2019 1:56 PM CDT) WBC 7.29 4.30 - 11.10 [id number] 10*3/L [place] [facility] RBC 4.58 3.93 - 5.25 10*6/L [facility] HGB 13.8 11.6 - 15.0 g/dL [facility] HCT 41.3 35.7 - 45.2 % [facility] MCV 90.2 80.6 - 95.5 fL [facility] MCH 30.1 25.9 - 32.8 pg [facility] MCHC 33.4 31.6 - 35.1 g/dL [facility] RDW-SD 43.6 39.0 - 49.9 fL [facility] RDW-CV 13.2 12.0 - 15.5 % [facility] PLT 366 (H) 166 - 358 10*3/L [facility] MPV 9.6 9.5 - 12.9 fL [facility] NRBC/100 WBC 0.0 0.0 - 10.0 /100 WBCs [facility] NRBC x10^3 <0.01 10*3/L [facility] GRAN MAT (NEUT) 54.2 % [facility] IMM GRAN % 0.30 % [facility] LYMPH % 33.2 % [facility] MONO % 7.0 % [facility] EOS % 4.3 % [facility] BASO % 1.0 % [facility] GRAN MAT 3.96 1.88 - 7.09 10*3/uL [place] x10^3(ANC) [facility] IMM GRAN x10^3 <0.03 0.00 - 0.06 10*3/uL [facility] LYMPH x10^3 2.42 1.32 - 3.29 10*3/uL [facility] MONO x10^3 0.51 0.33 - 0.92 10*3/uL [facility] EOS x10^3 0.31 0.03 - 0.39 10*3/uL [facility] BASO x10^3 0.07 0.01 - 0.07 10*3/uL [facility] Specimen Blood - ARM, LEFT Performing Organization Address City/State/Zipcode Phone Number [facility] CLIA: [id number], [address] [place] [address] * COMP. METABOLIC PANEL (69536) (06/18/2019 1:56 PM CDT) NA 137 135 - 145 mmol/L [facility] K 4.6 3.5 - 5.0 mmol/L [facility] CL 99 98 - 108 mmol/L [facility] CO2 TOTAL 28 23 - 31 mmol/L [facility] AGAP 10 2 - 16 [facility] BUN 8 7 - 23 mg/dL [facility] GLUCOSE 98 70 - 110 mg/dL [facility] CREATININE 0.62 0.50 - 1.04 mg/dL [facility] TOTAL BILI 0.5 0.1 - 1.1 mg/dL [facility] CALCIUM 10.1 8.6 - 10.6 mg/dL [facility] T PROTEIN 7.4 6.3 - 8.2 g/dL [facility] ALBUMIN 4.7 3.5 - 5.0 g/dL [facility] ALK PHOS 75 34 - 122 U/L [facility] ALT(SGPT) 21 9 - 51 U/L [facility] AST(SGOT) 25 13 - 40 U/L [facility] eGFR 96.0 mL/min/1.73m2 [place] Calculation [place] [facility] eGFR 116.4 mL/min/1.73m2 [place] Calculation [place] [facility]OR[facility]ORY Specimen Blood - ARM, LEFT Narrative Performed At Association of Glomerular Filtration Rate (GFR) and Staging of Kidney Disease* [facility] + + + + [facility] | GFR (mL/min/1.73 m2)| With Kidney Damage|Without Kidney Damage + + + + |>90|Stage one| Normal + + + + |60-89|Stage two| Decreased GFR + + + + |30-59|Stage three| Stage three + + + + |15-29|Stage four | Stage four + + + + |<15 (or dialysis)|Stage five | Stage five + + + + *Each stage assumes the associated GFR level has been in effect for at least three months.Stages 1 to 5, with or without kidney disease, indicate chronic kidney disease. Notes: Determination of stages one and two (with eGFR >59mL/min/1.73 m2) requires estimation of kidney damage for at least three months as defined by structural or functional abnormalities of the kidney, manifested by either: Pathological abnormalities or Markers of kidney damage (including abnormalities in the composition of the blood or urine or abnormalities in imaging tests). Performing Organization Address [facility] Phone Number [facility] CLIA: [id number], [address] [place] [id number] * LIPID PANEL ([id number])(TOTAL CHOLESTEROL, TRIGLYCERIDES, HDL) (06/18/2019 1:56 PM CDT) CHOL 156 120 - 200 mg/dL [facility] HDL 52 >50 mg/dL [facility] HDLC RATIO 3.0 <=4.5 [facility] TRIG 153 30 - 170 mg/dL [facility] LDL CHOL 73 <=160 mg/dL [facility] VLDL 31 5 - 60 mg/dL [facility] Specimen Blood - ARM, LEFT Performing Organization Address City/[facility] Phone Number [facility] CLIA: [id number], [address] [place] [address] documented in this encounter Visit Diagnoses Diagnosis Medicare annual wellness visit, initial - Primary Routine general medical examination at a health care facility documented in this encounter Insurance Type Payer Benefit Subscriber ID Effective Phone Address Plan / Dates Group Medicare MEDICARE MEDICARE xxxxxxxxxxx 2016-P [phone] resent [id number] [place] [phone] HMO/PPO/POS CIGNA CIGNA [id number] 2016- GENERIC Present documented as of this encounter"
--- OUTSIDE RECORDS SUMMARY | 2019-12-14 19:36 | XMS REPORT | Summary of Care ---
Author Author [facility] [[email or web address]] - Health Organization [facility] [[email or web address]] - Health Address Unknown Phone Unavailable Care Team Providers Care Cardiovascular Disease Specialist Name Role Phone Arleen Jimenez MD PCP Reason for Referral * MRI/CAT Scan (Routine) Referred By Contact Referred To Contact Status Reason Specialty Diagnoses / Procedures Devin Hou MD [address] [place] [address] Closed Diagnostic Diagnoses Radiology Chronic left shoulder pain P rocedures MR SHOULDER LEFT WO CONTRAST * MRI/CAT Scan (Routine) Referred By Contact Referred To Contact Status Reason Specialty Diagnoses / Procedures Devin Hou MD [address] [place] [address] Closed Diagnostic Diagnoses Radiology Chronic left shoulder pain P rocedures MR SHOULDER LEFT WO CONTRAST Reason for Visit * MRI/CAT Scan (Routine) Referred By Contact Referred To Contact Status Reason Specialty Diagnoses / Procedures Devin Hou MD [address] [place] [address] Closed Diagnostic Diagnoses Radiology Chronic left shoulder pain P rocedures MR SHOULDER LEFT WO CONTRAST Encounter Details Care Team Description Date Type Department Devin Hou MD [address] [place] [address] Arrived 06/17/2019 [facility] Encounter [facility] [address] [place] [address] [place] [address] Allergies Comments Active Allergy Reactions Severity Noted [...] 75 Take 1 tablet 90 tablet 1 201 mg tablet by mouth 6 daily. Active [...] tablet 1 tablet EVERY MORNING 9 Active terconazole 0.8 % vaginal Insert 1 20 g 0 creamIndications: Applicator 9 Postmenopausal atrophic into vagina vaginitis at bedtime. 1 applicator into vagina at bedtime for 3 nights Active conjugated estrogens Insert 1 g 30 g 1 0.625 mg/gram vaginal into vagina 9 creamIndications: SEE-INSTRUCTI Postmenopausal atrophic ONS. Apply vaginitis small amount to vaginal opening 2-3 times a week. Active SERTRALINE 50 mg TAKE 1 TABLET 90 tablet 1 tabletIndications: DAILY 9 Agitation, Irritability Active predniSONE 10 mg 2 tabs po 7 tablet 0 tabletIndications: daily x 2 9 Generalized rash days, 1 tabs po daily x 2 days, 0.5 tab po qdaily x 2 days then stop, Take with food Active hydrOXYzine 25 mg Take 1-2 30 tablet 0 tabletIndications: tablets by 9 Generalized rash mouth every 8 (eight) hours as needed for Itching. Active pantoprazole 40 mg EC pantoprazole 0 tablet 40 mg tablet,delaye d release Active baclofen 10 mg Take 0.5-1 30 tablet 0 tabletIndications: Muscle tablets by 9 cramps, Myalgia mouth 3 (three) times daily as needed (muscle pain or spasm). Active ezetimibe 10 mg Take 1 tablet 30 tablet 5 tabletIndications: by mouth 9 Hypercholesterolemia daily. Active coenzyme Q10 (COQ-10) 100 Take 1 30 capsule 5 mg softgelIndications: capsule by 9 Hypercholesterolemia mouth daily. Active LORazepam 1 mg 1-2 tablets 2 tablet 0 tabletIndications: by mouth once 9 History of claustrophobia now for 1 dose. 1 hour prior to MRI. documented as of this encounter (statuses as [...] 13 10/18/2016 Conjugate, PCV13 (Prevnar 13) Pneumococcal 07/24/2013 Polysaccharide, PPSV23 (PNEUMOVAX) documented as of this encounter Social History [...] of this encounter Last Filed Vital Signs Not on filedocumented in this encounter Plan of Treatment Care Team Description Date Type Specialty Arleen Jimenez MD [address] [facility] [address] 06/18/2019 Office Visit Family Medicine Devin Hou MD [address] [place] [phone] 06/23/2019 Office Visit Orthopedic Surgery Ponce, Tiffany Cam, MD [address] [place] [address] [place] [address] [phone] 09/22/2019 Office Visit Obstetrics & Gynecology Health Maintenance Due Date Last Done Comments DTaP,Tdap,and Td Vaccines 1970 (1 - Tdap) Zoster Recombinant 2001 Vaccine (SHINGRIX) (1 of 2) PNEUMOCOCCAL VACCINES 65+ 07/24/2018 10/18/2016, 07/24/2013 (2 of 2 - PPSV23) Medicare Wellness Visit 06/16/2019 06/16/2018, 06/16/2017 INFLUENZA VACCINE 07/11/2019 07/29/2017 LUNG CANCER SCREEN: 07/31/2019 07/31/2018, 07/21/2017, 06/26/2016 Recommended for age 55-80 with 30 + pack year history MAMMOGRAM 07/31/2019 07/31/2018, 07/21/2017 COLONOSCOPY 11/10/2024 11/10/2014 (Previously completed) Osteoporosis Screening Completed 07/21/2017 HEPATITIS C (HCV) SCREEN Completed 01/05/2018, 12/11/2017 documented as of this encounter Procedures Comments Procedure Name Priority Date/Time Associated Diagnosis MR SHOULDER LEFT WO Routine 06/17/2019 Chronic left shoulder CONTRAST 8:53 AM CDT pain documented in this encounter Results * MR SHOULDER LEFT WO CONTRAST (06/17/2019 8:53 AM CDT) Specimen Impressions Performed At 1. Full-thickness tear of the rotator cuff tendon PACS/VR/DOSE 2. Osteoarthrosis of the AC joint Narrative Performed At * * * * * * * * ORIGINAL REPORT * * * * * * * * PACS/VR/DOSE EXAM: MRI OF THE LEFT SHOULDER HISTORY: Shoulder pain since May. No trauma. Limited range of motion TECHNIQUE:Multiplanar multisequence images of the shoulder are obtained using 1.5 Amanda magnet. COMPARISON: X-rays of the shoulder from 05/25/2019 FINDINGS: Full-thickness tear of the rotator cuff tendon is noted with retraction of the tendon. The infraspinatus tendon appears to be normal. Long head of the biceps tendon is located in the bicipital groove and the biceps labral complex is intact. The glenoid labrum and spino- glenoid notch are normal. Degenerative changes are seen in the AC joint in the form of osteophyte and callus formation. A type II acromion process is noted. No abnormal marrow signal is seen within the bones. Moderate joint effusion is present. Fluid is seen in the subacromial subdeltoid bursa. Procedure Note [facility], Radiant Results Inft User - 06/17/2019 9:04 AM CDT * * * * * * * * ORIGINAL REPORT * * * * * * * * EXAM: MRI OF THE LEFT SHOULDER HISTORY: Shoulder pain since May. No trauma. Limited range of motion TECHNIQUE:Multiplanar multisequence images of the shoulder are obtained using 1.5 Amanda magnet. COMPARISON: X-rays of the shoulder from 05/25/2019 FINDINGS: Full-thickness tear of the rotator cuff tendon is noted with retraction of the tendon. The infraspinatus tendon appears to be normal. Long head of the biceps tendon is located in the bicipital groove and the biceps labral complex is intact. The glenoid labrum and spino- glenoid notch are normal. Degenerative changes are seen in the AC joint in the form of osteophyte and callus formation. A type II acromion process is noted. No abnormal marrow signal is seen within the bones. Moderate joint effusion is present. Fluid is seen in the subacromial subdeltoid bursa. IMPRESSION 1. Full-thickness tear of the rotator cuff tendon 2. Osteoarthrosis of the AC joint Performing Organization Address City/State/Zipcode Phone Number PACS/VR/DOSE documented in this encounter Visit Diagnoses Diagnosis Chronic left shoulder pain Pain in joint, shoulder region documented in this encounter Insurance Type Payer Benefit Subscriber ID Effective Phone Address Plan / Dates Group Medicare MEDICARE MEDICARE xxxxxxxxxxx 2016-P [phone] [address] resent [id number] [place] [address] HMO/PPO/POS CIGNA CIGNA [id number] 2016- GENERIC Present documented as of this encounter
--- OUTSIDE RECORDS SUMMARY | 2019-12-14 19:36 | XMS REPORT | Encounter Summary ---
Author Organization Unknown Address [address] [place] [address] Phone [phone] Care Team Providers Care Hot Box Checker Name Role Phone Arleen Jimenez MD 3 [phone] Gerald Nieves MD 82 [phone] Julia Jay 104 [phone] Reason for Visit Follow Up Visit Instructions 1. Dried blood in external ear canal 2. Otalgia 3. Tinnitus tympanogram Discussion Note: None recorded. Patient educational handouts: No information available. Plan of Care Patient Instructions Patient discharged with the following instructions per Dr. Jay Patient is to keep the left ear dry while showering no water or shampoo to enter the ear Use Ciprodex ear drops as needed Follow up in 4 month for reevaluate the left ear If symptoms are still persistent mother is to call the office Patients mother verbalized understanding the instructions given along with my office Reminders Provider Appointments Follow up 08/06/2019 9:00AM Julia Jay MD Lab None recorded. Referral None recorded. Procedures None recorded. Surgeries None recorded. Imaging Tympanogram 04/09/2019 In-House Results Medications Name Start Date Aspirin Low Dose 81 mg tablet,delayed release Take 1 tablet every day by oral route. baclofen 10 mg tablet Ciprodex 0.3 %-0.1 % ear drops,suspension clopidogrel 75 mg tablet ezetimibe 10 mg tablet fenofibrate nanocrystallized 145 mg tablet hydroxyzine HCl 25 mg tablet ipratropium bromide 42 mcg (0.06 %) nasal spray isosorbide mononitrate ER 30 mg tablet,extended release 24 hr isosorbide mononitrate ER 60 mg tablet,extended release 24 hr levothyroxine 50 mcg tablet lisinopril 10 mg-hydrochlorothiazide 12.5 mg tablet lorazepam 1 mg tablet metoprolol succinate ER 50 mg tablet,extended release 24 hr nitrofurantoin monohydrate/macrocrystals 100 mg capsule nitroglycerin 0.4 mg sublingual tablet pantoprazole 40 mg tablet,delayed release [place] 0.7 % eye drops sertraline 50 mg tablet terconazole 0.8 % vaginal cream Ventolin HFA 90 mcg/actuation aerosol inhaler Medications Administered None recorded. Vitals Height Weight BMI Blood Pressure 5 ft 146.4 lbs 28.6 kg/m2 159/80 mm[Hg] Lab Results Date Name Specimen Result Interpretation Description Value Range Status Address 04/01/2019 Tympanogram Right Type A Normal In-House Results: For Internal Use Only Allergies Code Code System Name Reaction Severity Status Onset 2670 RxNorm Codeine Active 3640 RxNorm Doxycycline Headache Active 028346 RxNorm Dulcolax Stool Softener (Dss) Abdominal Pain Active 205110 RxNorm Fortaz Active 5640 RxNorm Ibuprofen Active 643824 RxNorm Lipitor Facial Swelling Active 20290719 RxNorm Lopid Active 352418 RxNorm Mevacor Nausea Active 8640 RxNorm Prednisone Nausea Active Symbicort Headache Active Problems Name Status Onset Date Source Influenza-like Symptoms Active 01/21/2019 Procedures Date Name Performed by 06/10/2010 Nasal Surgery Information not available Remove Tonsils and Adenoids Information not available Cataract Surgery Complex Information not available Removal of Tonsils Information not available Ear Surgery Information not available Heart Surgery Information not available 04/01/2019 Tympanogram In-House Results For Internal Use Only [id number] 04/09/2019 Tympanogram In-House Results For Internal Use Only [id number] Vaccine List Vaccine Type influenza, injectable, quadrivalent 08/12/2019 Social History Smoking Status Never Smoker Past Encounters 04/09/2019 Dried Blood in External Ear Canal; Otalgia; Tinnitus Julia Jay MD: [address] [facility], [address], [place] [address], Ph. 04/01/2019 Ventilation Tube Finding; Dried Blood in External Ear Canal; Otalgia; Tinnitus Julia Jay MD: [address] [facility], [address], [place] [address], Ph. History of Present Illness None recorded. Review of Systems ENT ROS Reported By: Patient ENMT: ENMT: ear pain, hearing loss, sinus pressure, runny nose; Tube still present in left ear Physical Exam ENT Exam Misty Focus-No Stethoscope Reported By: Patient Ears: Right [...] pearly landry, landmarks clear. Left Tympanic membrane: mobile with pneumatic otoscopy, landmarks clear, erythematous, dull, tube is present; Very unusual hard dried blood clot embedded around the ear tube stuck on the tympanic membrane
--- OUTSIDE RECORDS SUMMARY | 2019-12-14 19:36 | XMS REPORT | Summary of Care ---
Author Author [facility] - Health Organization [facility] - Health Address Unknown Phone Unavailable Care Team Providers Care Coal Hauler Operator Name Role Phone Arleen Jimenez MD PCP Encounter Details Care Team Description Date Type Department Doctor Unassigned, [place] [address] [place] [address] 06/17/2019 Orders Only [facility] [address] [place] [address] Allergies Comments Active Allergy Reactions Severity Noted [...] as of this encounter (statuses as of 06/17/2019) Medications End Date Status Medication Sig Dispensed [...] 75 Take 1 tablet 90 tablet 1 06/14/201 mg tablet by mouth 6 daily. Active [...] as of this encounter (statuses as of 06/17/2019) Active Problems Problem Noted Date Thrombocytosis 01/13/2019 [...] as of this encounter (statuses as of 06/17/2019) Resolved Problems Problem Noted Date Resolved Date Therapeutic opioid induced constipation 07/21/2017 01/13/2019 Right hip pain 06/14/2016 01/13/2019 documented as of this encounter (statuses as of 06/17/2019) Immunizations Name Administration Dates Next Due Influenza [...] Description Date Type Specialty Devin Hou MD [address] [place] [phone] 06/17/2019 Appointment Radiology Arleen Jimenez MD [address] [place] [address] [place] [address] 06/18/2019 Office Visit Family Medicine Tiffany Ponce MD [address] [place] [address] [address] 09/22/2019 Office Visit Obstetrics & Gynecology Health [...] Comments Procedure Name Priority Date/Time Associated Diagnosis ASSIGNMENT OF BENEFITS Routine 06/17/2019 7:35 AM CDT documented in this encounter Results Not on filedocumented in this encounter Insurance Type Payer Benefit Subscriber ID Effective Phone Address Plan / Dates Group Medicare MEDICARE MEDICARE xxxxxxxxxxx 2016-P [phone] resent [id number] [place] [phone] HMO/PPO/POS CIGNA CIGNA [id number] 2016- GENERIC Present documented as of this encounter
--- OUTSIDE RECORDS SUMMARY | 2019-12-14 19:36 | XMS REPORT | Summary of Care ---
Author Author [facility] - Health Organization [facility] - Health Address Unknown Phone Unavailable Care Team Providers Care Senior Cytotechnologist Name Role Phone Arleen Jimenez MD PCP Reason for Visit * Reason Comments Medicare Annual Wellness LAB WORK Encounter Details Care Team Description Date Type Department Catia Ji, [facility] [address] [address] Medicare annual wellness visit, initial (Primary Dx) 06/18/2019 Office Visit [facility] Family Medicine [address] [address] Allergies Comments Active Allergy Reactions [...] follow-up recommended, Dr. Anne ETHMOIDECTOMY Left 2009 [place] REMV CATARACT EXTRACAP,INSERT LENS Bilateral 05/28/16, 06/11/16 [...] complete preferred cognitive screen in Flowsheet [facility]) Six-Item Screener Can the patient repeat the [...] counseling provided through patient instructions ([facility]icare [email or web address] Advice) Health Maintenance Summary Status Date DTaP,Tdap,and Td Vaccines Overdue 1970 Zoster Recombinant Vaccine (SHINGRIX) Overdue 2001 PNEUMOCOCCAL VACCINES 65+ Overdue 07/24/2018 Done 10/18/2016 Imm Admin: Pneumococcal 13 Conjugate, PCV13 (Prevnar 13) Done 07/24/2013 Imm Admin: Pneumococcal Polysaccharide, PPSV23 (PNEUMOVAX) Medicare Wellness Visit Overdue 06/16/2019 Done 06/16/2018 LOS:G0439 [place] PPPS, SUBSEQ VISIT Done 06/16/2017 LOS:G0402 [place] INITIAL PREVENTIVE EXAM INFLUENZA VACCINE Next Due [...] follow-up recommended, Dr. Anne ETHMOIDECTOMY Left 2009 [place] REMV CATARACT EXTRACAP,INSERT LENS Bilateral 05/28/16, 06/11/16 [...] file Gets together: Not on file Attends jain service: Not on file Active member of [...] Narrative Lives alone. 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 [place]ins [place], [place] [phone] 09/22/2019 Office Visit Obstetrics & Gynecology Date/Time [...] 1:56 PM CDT visit, initial LIPID PANEL (04896)(TOTAL Routine 06/18/2019 Medicare annual wellness CHOLESTEROL, 1:56 PM CDT visit, initial TRIGLYCERIDES, HDL) COMP. METABOLIC PANEL Routine 06/18/2019 Medicare annual wellness (58129) 1:56 PM CDT visit, initial documented in this encounter Results * CBC WITH DIFFERENTIAL (06/18/2019 1:56 PM CDT) WBC 7.29 4.30 - 11.10 MARS 10*3/L [facility] RBC 4.58 3.93 - 5.25 10*6/L [facility] HGB 13.8 11.6 - 15.0 g/dL [facility] HCT 41.3 35.7 - 45.2 % [facility] MCV 90.2 80.6 - 95.5 fL [facility] MCH 30.1 25.9 - 32.8 pg [facility] MCHC 33.4 31.6 - 35.1 g/dL [facility] RDW-SD 43.6 39.0 - 49.9 fL [facility] RDW-CV 13.2 12.0 - 15.5 % [facility] PLT 366 (H) 166 - 358 10*3/L [facility] MPV 9.6 9.5 - 12.9 fL [facility] NRBC/100 WBC 0.0 0.0 - 10.0 /100 WBCs [facility] NRBC x10^3 <0.01 10*3/L [facility] GRAN MAT (NEUT) 54.2 % [facility] IMM GRAN % 0.30 % [facility] LYMPH % 33.2 % [facility] MONO % 7.0 % [facility] EOS % 4.3 % [facility] BASO % 1.0 % [facility] GRAN MAT 3.96 1.88 - 7.09 10*3/uL MARS x10^3(ANC) [facility] IMM GRAN x10^3 <0.03 0.00 - 0.06 10*3/uL [facility] LYMPH x10^3 2.42 1.32 - 3.29 10*3/uL [facility] MONO x10^3 0.51 0.33 - 0.92 10*3/uL [facility] EOS x10^3 0.31 0.03 - 0.39 10*3/uL [facility] BASO x10^3 0.07 0.01 - 0.07 10*3/uL [facility] Specimen Blood - ARM, LEFT Performing Organization Address City/State/Zipcode Phone Number [facility] CLIA: [id number], [address] [place] [address] * COMP. METABOLIC PANEL (91235) (06/18/2019 1:56 PM CDT) NA 137 135 - 145 mmol/L [facility] K 4.6 3.5 - 5.0 mmol/L [facility] CL 99 98 - 108 mmol/L [facility] CO2 TOTAL 28 23 - 31 mmol/L [facility] AGAP 10 2 - 16 [facility] BUN 8 7 - 23 mg/dL [facility] GLUCOSE 98 70 - 110 mg/dL [facility] CREATININE 0.62 0.50 - 1.04 mg/dL [facility] TOTAL BILI 0.5 0.1 - 1.1 mg/dL [facility] CALCIUM 10.1 8.6 - 10.6 mg/dL [facility] T PROTEIN 7.4 6.3 - 8.2 g/dL [facility] ALBUMIN 4.7 3.5 - 5.0 g/dL [facility] ALK PHOS 75 34 - 122 U/L [facility] ALT(SGPT) 21 9 - 51 U/L [facility] AST(SGOT) 25 13 - 40 U/L [facility] eGFR 96.0 mL/min/1.73m2 [place] Calculation [place] [place] [facility] eGFR 116.4 mL/min/1.73m2 [place]ARS Calculation [place] [place] [facility] Specimen Blood - ARM, LEFT Narrative Performed At Association of Glomerular Filtration Rate (GFR) and Staging of Kidney Disease* [facility] + + + + [facility] | GFR (mL/min/1.73 m2)| With [...] abnormalities in imaging tests). Performing Organization Address [facility]/[employer] Phone Number [facility] CLIA: [id number], [address] [place] [address] * LIPID PANEL (29137)(TOTAL CHOLESTEROL, TRIGLYCERIDES, HDL) (06/18/2019 1:56 PM CDT) CHOL 156 120 - 200 mg/dL [facility] HDL 52 >50 mg/dL [facility] HDLC RATIO 3.0 <=4.5 [facility] TRIG 153 30 - 170 mg/dL [facility] LDL CHOL 73 <=160 mg/dL [facility] VLDL 31 5 - 60 mg/dL [facility] Specimen Blood - ARM, LEFT Performing Organization Address City/[facility]/[employer] Phone Number [facility] CLIA: [id number], [address] [place] [address] documented in this encounter Visit Diagnoses Diagnosis Medicare annual wellness visit, initial - Primary Routine general medical examination at a health care facility documented in this encounter Insurance Type Payer Benefit Subscriber ID Effective Phone Address Plan / Dates Group Medicare MEDICARE MEDICARE xxxxxxxxxxx 2016-P [phone] B resent [id number] [place] [phone] HMO/PPO/POS CIGNA CIGNA [id number] 2016- GENERIC Present documented as of this encounter"
--- OUTSIDE RECORDS SUMMARY | 2019-12-14 19:36 | XMS REPORT | Encounter Summary ---
Author Organization Unknown Address [address] [place] [address] Phone [phone] Reason for Visit Follow Up Visit Instructions 1. Ventilation tube finding 2. Dried blood in external ear canal 3. Otalgia 4. Tinnitus tympanogram Discussion Note: None recorded. Patient educational handouts: No information available. Plan of Care Patient Instructions Patient discharged with the following instructions per Dr. Jay Patient is to keep the left ear dry while showering no water or shampoo to enter the ear Use Ciprodex ear drops bid for 1 week in left ear Follow up 1 week for removal of left ear tube If symptoms are still persistent mother is to call the office Patients mother verbalized understanding the instructions given along with my office Reminders Provider Appointments Follow up 04/09/2019 9:30AM Julia Jay MD Lab None recorded. Referral None recorded. Procedures None recorded. Surgeries None recorded. Imaging Tympanogram 04/01/2019 In-House Results Medications Name Start Date Aspirin Low Dose 81 mg tablet,delayed release Take 1 tablet every day by oral route. clopidogrel 75 mg tablet fenofibrate nanocrystallized 145 mg tablet fluticasone propionate 50 mcg/actuation nasal spray,suspension [place] 1 spray twice a day by intranasal route for 30 days. hydroxyzine HCl 25 mg tablet ipratropium bromide 42 mcg (0.06 %) nasal spray isosorbide mononitrate ER 60 mg tablet,extended release 24 hr levothyroxine 50 mcg tablet lisinopril 10 mg-hydrochlorothiazide 12.5 mg tablet lorazepam 1 mg tablet metoprolol succinate ER 50 mg tablet,extended release 24 hr nitrofurantoin monohydrate/macrocrystals 100 mg capsule nitroglycerin 0.4 mg sublingual tablet pantoprazole 40 mg tablet,delayed release [place] 0.7 % eye drops prednisone 10 mg tablet promethazine 6.25 mg-codeine 10 mg/5 mL syrup Take 5 mL every 6 hours by oral route. TAKE NEEDED FOR COUGH AND HEADACHE sertraline 50 mg tablet terconazole 0.8 % vaginal cream Ventolin HFA 90 mcg/actuation aerosol inhaler Medications Administered None recorded. Vitals Height Weight BMI Blood Pressure 5 ft 148.6 lbs 29 kg/m2 138/77 mm[Hg] Lab Results Date Name Specimen Result Interpretation Description Value Range Status Address 04/01/2019 Tympanogram Right Type A Normal In-House Results: For Internal Use Only Allergies Code Code System Name Reaction Severity Status Onset 2670 RxNorm Codeine Active 3640 RxNorm Doxycycline Headache Active 505602 RxNorm Dulcolax Stool Softener (Dss) Abdominal Pain Active 20331211 RxNorm Fortaz Active 350688 RxNorm Lipitor Facial Swelling Active 20290719 RxNorm Lopid Active 612511 RxNorm Mevacor Nausea Active 8640 RxNorm Prednisone [...] Tympanogram In-House Results For Internal Use Only 71358 Vaccine List Vaccine Type influenza, injectable, quadrivalent 08/12/2019 Social History Smoking Status Never Smoker Past Encounters 04/01/2019 Ventilation Tube Finding; Dried Blood in External Ear Canal; Otalgia; Tinnitus Julia Jay MD: [address] [place] [address], [address], [place] [address], Ph. History of Present Illness None recorded. Review of Systems ENT ROS Reported By: Patient ENMT: ENMT: ear pain, hearing loss, sinus pressure, runny nose; Tube still present in left ear Physical Exam ENT Exam Misty Focus-No Stethoscope Reported By: Patient Ears: Left Tympanic membrane: tube is present; left ear eardrum stuck with the ear tube with dry blood clot attempted to remove unable to be successful. Because of the pain strongly suggested Ciprodex otic solution 3-4 days before I remove. I will arrange last week video picture was in place in the chart. Thank you. Proper instructions are given by office nurse Jane
--- OUTSIDE RECORDS SUMMARY | 2019-12-14 19:36 | XMS REPORT | Summary of Care ---
Author Author [facility] - Health Organization [facility] - Health Address Unknown Phone Unavailable Care Team Providers Care Computer Systems Design Analyst Name Role Phone Arleen Jimenez MD PCP Encounter Details Care Team Description Date Type Department Doctor Unassigned, [place] [address] [place] [address] 06/18/2019 Orders Only [facility] [address] [place] [address] Allergies Comments Active Allergy Reactions Severity Noted [...] Date Type Specialty Arleen Jimenez MD [address] [facility] [place] [address] [phone] 06/18/2019 Office Visit Family Medicine Devin Hou MD [address] [facility] [place] [phone] 06/23/2019 Office Visit Orthopedic Surgery Tiffany Ponce MD [address] [place] [address] [address]ins [place], [place] [address] 09/22/2019 Office Visit Obstetrics & Gynecology Health [...] Comments Procedure Name Priority Date/Time Associated Diagnosis NO SHOW OR MISSED Routine 06/18/2019 APPOINTMENT POLICY 9:51 AM CDT ACKNOWLEDGEMENT documented in this encounter Results Not on filedocumented in this encounter Insurance Type Payer Benefit Subscriber ID Effective Phone Address Plan / Dates Group Medicare MEDICARE MEDICARE xxxxxxxxxxx 2016-P [phone] B resent [id number] [place] [id number] HMO/PPO/POS CIGNA CIGNA [id number] 2016- GENERIC Present documented as of this encounter
--- OUTSIDE RECORDS SUMMARY | 2019-12-14 19:37 | XMS REPORT | Summary of Care ---
Author Author [facility] - Health Organization [facility] - Health Address Unknown Phone Unavailable Care Team Providers Care Aerial Lineman Name Role Phone Arleen Jimenez MD PCP Encounter Details Care Team Description Date Type Department Arleen Jimenez MD [address] [place] [phone] 06/22/2019 Patient Secure [address] [phone] Allergies Comments Active Allergy Reactions Severity Noted [...] as of this encounter (statuses as of 06/22/2019) Medications End Date Status Medication Sig Dispensed [...] mg 24 hr tablet mouth daily. Active LEVOTHYROXINE 50 mcg TAKE 1 [...] tablet by mouth 4 (four) times daily. 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 [address] [phone] 09/22/2019 Office Visit Obstetrics & Gynecology Health Maintenance Due Date Last Done Comments DTaP,Tdap,and Td Vaccines 1970 (1 - Tdap) Zoster Recombinant 06/13/2015 04/18/2015 Vaccine (SHINGRIX) (2 of 3) INFLUENZA VACCINE 07/11/2019 07/29/2017 LUNG CANCER SCREEN: 07/31/2019 07/31/2018, 07/21/2017, 06/26/2016 Recommended for age 55-80 with 30 + pack year history MAMMOGRAM 07/31/2019 07/31/2018, 07/21/2017 Medicare Wellness Visit 06/18/2020 06/18/2019, 06/16/2018, 06/16/2017 COLONOSCOPY 11/10/2024 11/10/2014 (Previously completed) Osteoporosis Screening Completed 07/21/2017 PNEUMOCOCCAL VACCINES 65+ Completed 07/24/2017, 10/18/2016 HEPATITIS C (HCV) SCREEN Completed 01/05/2018, 12/11/2017 documented as of this encounter Results Not on filedocumented in this encounter Insurance Type Payer Benefit Subscriber ID Effective Phone Address Plan / Dates Group Medicare MEDICARE MEDICARE xxxxxxxxxxx 2016-P [phone] B resent [id number] [place] [phone] HMO/PPO/POS CIGNA CIGNA [id number] 2016- GENERIC Present documented as of this encounter
--- OUTSIDE RECORDS SUMMARY | 2019-12-14 19:37 | XMS REPORT | Summary of Care ---
Author Author [facility] - Health Organization [facility] - Health Address Unknown Phone Unavailable Care Team Providers Care Dinkey Engine Firer Name Role Phone Arleen Jimenez MD PCP Reason for Visit * Reason Comments Refill Request Encounter Details Care Team Description Date Type Department Arleen Jimenez MD [address] [place] [phone] Refill Request 06/30/[address] [phone] Allergies Comments Active Allergy Reactions Severity Noted [...] as of this encounter (statuses as of 06/30/2019) Medications End Date Status Medication Sig Dispensed [...] (two) times Coronary artery disease daily. involving [place] heart with angina pectoris, unspecified vessel or lesion type documented as of this encounter (statuses as of 06/30/2019) Active Problems Problem Noted Date Thrombocytosis 01/13/2019 [...] as of this encounter (statuses as of 06/30/2019) Resolved Problems Problem Noted Date Resolved Date Therapeutic opioid induced constipation 07/21/2017 01/13/2019 Right hip pain 06/14/2016 01/13/2019 documented as of this encounter (statuses as of 06/30/2019) Immunizations Name Administration Dates Next Due Influenza [...] Description Date Type Specialty Tiffany Ponce MD [address] [place] [address] [place] [address] [phone] 09/22/2019 Office Visit Obstetrics & Gynecology Health Maintenance Due Date Last Done Comments DTaP,Tdap,and Td Vaccines 1970 (1 - Tdap) Zoster Recombinant 06/13/2015 04/18/2015 Vaccine (SHINGRIX) (2 of 3) INFLUENZA VACCINE (#1) 2019 07/29/2017 LUNG CANCER SCREEN: 07/31/2019 07/31/2018, 07/21/2017, [...] Dates Group Medicare MEDICARE MEDICARE xxxxxxxxxxx 2016-P [phone] [address] B resent [id number] [place] [phone] HMO/PPO/POS CIGNA CIGNA [id number] 2016- GENERIC Present documented as of this encounter
--- OUTSIDE RECORDS SUMMARY | 2019-12-14 19:37 | XMS REPORT | Summary of Care ---
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 [address] [phone] 09/22/2019 Office Visit Obstetrics & Gynecology Health [...] Dates Group Medicare MEDICARE MEDICARE xxxxxxxxxxx 2016-P [phone] [address] B resent [id number] [place] [phone] HMO/PPO/POS CIGNA CIGNA [id number] 2016- GENERIC Present documented as of this encounter
--- OUTSIDE RECORDS SUMMARY | 2019-12-14 19:37 | XMS REPORT | Summary of Care ---
Author Author [facility] - Health Organization [facility] - Health Address Unknown Phone Unavailable Care Team Providers Care Rehab Therapy Manager Name Role Phone Arleen Jimeenz MD PCP Reason for Visit * Reason Comments Follow-up Encounter Details Care Team Description Date Type Department Abhijeet Miranda, PAC [address] [place] [address] Complete tear of left rotator cuff (Primary Dx) 06/22/2019 Office Visit [facility] Orthopaedic Surgery- [address] [phone] Allergies Comments Active Allergy Reactions Severity Noted [...] tablet by mouth 4 (four) times daily. documented as of this encounter (statuses [...] Signs Reading Time Taken Comments Vital Sign 136/67 06/22/2019 8:35 AM CDT Blood Pressure 63 06/22/2019 8:35 AM CDT Pulse - - Temperature - - Respiratory Rate - - Oxygen Saturation - - Inhaled Oxygen Concentration 65.3 kg (144 lb) 06/22/2019 8:35 AM CDT Weight 152.4 cm (5') 06/22/2019 8:35 AM CDT Height 28.12 06/22/2019 8:35 AM CDT Body Mass Index documented in this encounter Progress Notes * Abhijeet Miranda, PAC - 06/22/2019 8:45 AM CDT Cc: Chief Complaint Patient presents with Follow-up FOLLOW-UP MRI Results Lt shoulder. Films available in chart along with report. E vickimarcus Crandall 06/22/2019 8:36 AM Mimi Barclay is a 68 year old female. Left shoulder pain with MRI results Left shoulder pain and weakness she's tried shoulder injection had she has done a home exercise program Last injections only provided short term relief. Requesting injections again today. Allergies Mimi is allergic to dulcolax [bisacodyl]; [...] by mouth daily. 30 capsu le 5 SERTRALINE 50 mg tablet TAKE 1 TABLET DAILY 90 tablet 1 conjugated estrogens 0.625 mg/gram vaginal cream Insert 1 g into vagina SEE- INSTRUCTIONS. Apply small amount to vaginal opening 2-3 times a week. 30 g 1 LEVOTHYROXINE 50 mcg tablet TAKE 1 TABLET [...] ANGIOPLASTY 1986 & 1987 CABG, VEIN, TWO 2001 CAROTID ENDARTERECTOMY Bilateral 2001 (L), 2004 (R) COLONOSCOPY 12/04/2016 + polyps, 3 year follow-up recommended, Dr. Anne ETHMOIDECTOMY Left 2009 [place] REMV CATARACT EXTRACAP,INSERT LENS Bilateral 05/28/16, 06/11/16 RADICAL HYSTERECTOMY REPAIR OF NASAL SEPTUM 2010 SALPINGO-OOPHORECTOMY Left 1977 left side Social History [...] file Gets together: Not on file Attends oriental orthodox service: Not on file Active member of [...] Narrative Lives alone. 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 Jehovah'S Witness Preference: Episcopalian Denies domestic or physical violence within the [...] - see comments NoFHx Review of Systems Constitutional: Negative. HENT: Negative. Eyes: Negative. Respiratory: Negative. Breasts: Negative. Cardiovascular: Negative. Gastrointestinal: Negative. Genitourinary: Negative. Musculoskeletal: Positive for arthralgias, gait problem and joint swelling. Skin: Negative. Psychiatric/Behavioral: Negative. Endocrine: Endocrine negative Vital Signs BP 136/67 | Pulse 63 | Ht 60" (152.4 cm) | Wt 65.3 kg (144 lb) | BMI 28.12 k g/m Physical Exam Musculoskeletal: Physical Exam Constitutional: oriented to person, place, and time. appears well-developed and well-nourished. HENT: Head: Normocephalic and atraumatic. Right Ear: External ear normal. Left Ear: External ear normal. Eyes: Conjunctivae are normal. Neck: Normal range of motion. No strabismus Neck supple. Cardiovascular: Normal rate and regular rhythm. Pulmonary/Chest: Normal respiratory rate equal chest rise and fall in no apparen t distress Abdominal: Abdomen nondistended nontender Neurological: alert and oriented to person, place, and time. No asymmetry Skin: Skin is warm and dry. Psychiatric: normal mood and affect. behavior is normal. Judgment and thought co ntent normal. Nursing note and vitals reviewed. EXAM: MRI OF THE LEFT SHOULDER HISTORY: [...] tendon 2. Osteoarthrosis of the AC joint Assessment/Plan Diagnosis: 1. Complete tear of left rotator cuff Plan: She has weakness to external rotation and can only actively abduct to 85 which corroborates the complete rotator cuff tear seen on MRI. She will get a cardia c clearance and then we will give her surgical paperwork for a left shoulder rot ator cuff repair Surgery takes about 45 minutes on average with 6 weeks in an arm sling and is 6 weeks in physical therapy. I have discussed the patient's physical exam and reviewed their x-rays/imaging/r esults with them in detail. Discussed surgery at great lengths regarding risks and benefits. Explained as wi th any procedure there may be pain, damage to nerve and vascular structures, fat embolism, need for additional surgery, failure of procedure to relieve pain. We spoke of recovery time, expected outcome, possible restrictions and anticipat ion return to work date as well as possible rehabilitation if needed or required after the surgery. All questions have been answered. Condition and plans were discussed with patient, who expressed understanding and is agreeable to the plan. documented in this encounter Plan of Treatment Care Team Description Date Type Specialty Tiffany Ponce MD [address] [place] [address] [address]. [place] [place], [place] [phone] 09/22/2019 Office Visit [facility] Health [...] Results Not on filedocumented in this encounter Visit Diagnoses Diagnosis Complete tear of left rotator cuff - Primary documented in this encounter Insurance Type Payer Benefit Subscriber ID Effective Phone Address Plan / Dates Group Medicare MEDICARE MEDICARE xxxxxxxxxxx 2016-P [phone] resent [id number] [place] [phone] HMO/PPO/POS CIGNA CIGNA [id number] 2016- GENERIC Present documented as of this encounter
--- OUTSIDE RECORDS SUMMARY | 2019-12-14 19:37 | XMS REPORT | Summary of Care ---
Author Author [facility] - Health Organization [facility] - Health Address Unknown Phone Unavailable Care Team Providers Care Paper Pattern Folder Name Role Phone Arleen Jimenez MD PCP Reason for Visit * Reason Comments Follow-up Encounter Details Care Team Description Date Type Department Abhijeet Miranda, PAC [address] [place] [address] Complete tear of left rotator cuff (Primary Dx) 06/22/2019 Office Visit [facility] Orthopaedic Surgery- [address] [phone] Allergies Comments Active Allergy Reactions Severity Noted [...] follow-up recommended, Dr. 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 [address]ins [place], [place] [phone] 09/22/2019 Office Visit [facility]s [facility] Gynecology Health [...] Dates Group Medicare MEDICARE MEDICARE xxxxxxxxxxx 2016-P [phone] resent [id number] [place] [phone] HMO/PPO/POS CIGNA CIGNA [id number] 2016- GENERIC Present documented as of this encounter
--- OUTSIDE RECORDS SUMMARY | 2019-12-14 19:37 | XMS REPORT | Summary of Care ---
Author Author [facility] - Health Organization [facility] - Health Address Unknown Phone Unavailable Care Team Providers Care Hand Blocker Name Role Phone Arleen Jimenez MD PCP Encounter Details Care Team Description Date Type Department Devin Hou MD [address] [place] [address] 06/24/2019 Letter (Out) [facility] Orthopaedic Surgery- [address] [phone] Allergies Comments Active Allergy Reactions [...] as of this encounter (statuses as of 06/24/2019) Medications End Date Status Medication Sig Dispensed [...] (two) times 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 [address] [phone] 09/22/2019 Office Visit [facility] Gyne[facility] Health [...] Dates Group Medicare MEDICARE MEDICARE xxxxxxxxxxx 2016-P [phone] [address] resent [id number] [place] [phone] HMO/PPO/POS CIGNA CIGNA [id number] 2016- GENERIC Present documented as of this encounter
--- OUTSIDE RECORDS SUMMARY | 2019-12-14 19:37 | XMS REPORT | Summary of Care ---
Author Author [facility] - Health Organization [facility] - Health Address Unknown Phone Unavailable Care Team Providers Care Assistant Paralegal Name Role Phone Arleen Jimenez MD PCP Reason for Visit * Reason Comments Refill Request Encounter Details Care Team Description Date Type Department Arleen Jimenez MD [address] [place] [phone] Refill Request 07/06/[address] [phone] Allergies Comments Active Allergy Reactions Severity Noted [...] as of this encounter (statuses as of 07/06/2019) Medications End Date Status Medication Sig Dispensed [...] vaginal opening 2-3 times a week. 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 07/06/2019 Discontinued SERTRALINE 50 mg TAKE 1 TABLET 90 tablet 1 tabletIndications: DAILY 9 Agitation, Irritability documented as of this encounter (statuses as of 07/06/2019) Active Problems Problem Noted Date Thrombocytosis 01/13/2019 [...] as of this encounter (statuses as of 07/06/2019) Resolved Problems Problem Noted Date Resolved Date Therapeutic opioid induced constipation 07/21/2017 01/13/2019 Right hip pain 06/14/2016 01/13/2019 documented as of this encounter (statuses as of 07/06/2019) Immunizations Name Administration Dates Next Due Influenza [...] Description Date Type Specialty Tiffany Ponce MD [address] [place] [address] [place] [address] [phone] 09/22/2019 Office Visit Obstetrics & Gynecology Health [...] filedocumented in this encounter Visit Diagnoses Diagnosis Agitation Other and unspecified special symptom or syndrome, not elsewhere classified Irritability documented in this encounter Insurance Type Payer Benefit Subscriber ID Effective Phone Address Plan / Dates Group Medicare MEDICARE MEDICARE xxxxxxxxxxx 2016-P [phone] [address] resent [id number] [place] [phone] HMO/PPO/POS CIGNA CIGNA [id number] 2016- GENERIC Present documented as of this encounter
--- OUTSIDE RECORDS SUMMARY | 2019-12-14 19:37 | XMS REPORT | Summary of Care ---
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 documented as of this encounter [...] Date Type Specialty Tiffany Ponce MD [address] [place] [address] [place] [address] [phone] 09/22/2019 Office Visit Obstetrics & Gynecology Health [...] filedocumented in this encounter Visit Diagnoses Diagnosis Coronary artery disease involving [place] heart with angina pectoris, unspecified vessel or lesion type - Primary documented in this encounter Insurance Type Payer Benefit Subscriber ID Effective Phone Address Plan / Dates Group Medicare MEDICARE MEDICARE xxxxxxxxxxx 2016-P [phone] [address] resent [id number] [place] [id number] HMO/PPO/POS CIGNA CIGNA [id number] 2016- GENERIC Present documented as of this encounter
--- OUTSIDE RECORDS SUMMARY | 2019-12-14 19:37 | XMS REPORT | Summary of Care ---
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 [address] [phone] 09/22/2019 Office Visit Obstetrics & Gynecology Health [...] Dates Group Medicare MEDICARE MEDICARE xxxxxxxxxxx 2016-P [phone] resent [id number] [place] [phone] HMO/PPO/POS CIGNA CIGNA [id number] 2016- GENERIC Present documented as of this encounter
--- OUTSIDE RECORDS SUMMARY | 2019-12-14 19:38 | XMS REPORT | Summary of Care ---
Author Author [facility] - Health Organization [facility] - Health Address Unknown Phone Unavailable Care Team Providers Care Chief Investigator Name Role Phone Arleen Jimenez MD PCP Encounter Details Care Team Description Date Type Department Doctor Unassigned, [place] [address] [place] [address] 06/24/2019 Orders Only [facility] [address] [place] [address] Allergies Comments Active Allergy Reactions Severity Noted [...] as of this encounter (statuses as of 07/28/2019) Medications End Date Status Medication Sig Dispensed [...] (two) times Coronary artery disease daily. involving [place] heart with angina pectoris, unspecified vessel or lesion type documented as of this encounter (statuses as of 07/28/2019) Active Problems Problem Noted Date Thrombocytosis 01/13/2019 [...] as of this encounter (statuses as of 07/28/2019) Resolved Problems Problem Noted Date Resolved Date Therapeutic opioid induced constipation 07/21/2017 01/13/2019 Right hip pain 06/14/2016 01/13/2019 documented as of this encounter (statuses as of 07/28/2019) Immunizations Name Administration Dates Next Due Influenza [...] Description Date Type Specialty Tiffany Ponce MD [address] [place] [address] [place] [address] [phone] 09/22/2019 Office Visit Obstetrics & Gynecology Health [...] Comments Procedure Name Priority Date/Time Associated Diagnosis MEDICAL RELEASE/CLEARANCE Routine 06/24/2019 FORMS 12:01 AM CDT documented in this encounter Results Not on filedocumented in this encounter Insurance Type Payer Benefit Subscriber ID Effective Phone Address Plan / Dates Group Medicare MEDICARE MEDICARE xxxxxxxxxxx 2016-P [phone] [address] resent [id number] [place] [phone] HMO/PPO/POS CIGNA CIGNA [id number] 2016- GENERIC Present documented as of this encounter
--- OUTSIDE RECORDS SUMMARY | 2019-12-14 19:38 | XMS REPORT | Continuity of Care Document ---
Author Author [facility] Organization [facility] Address [address] [place] [address] Phone Unavailable Allergies, Adverse Reactions, Alerts Allergen Type Severity Reaction Last Updated Verified Status Bisacodyl ([id number]) Allergy Severe SEVERE STOMACH PAIN January 22, 2019 Yes Active Doxycycline ([id number]) Allergy Severe THROAT SWELLING, HEADACHES January 22, 2019 Yes Active Gemfibrozil ([id number]) Allergy Severe THROAT SWELLS January 22, 2019 Yes Active Budesonide ([id number]) Allergy Severe HEADACHES, THROAT SWELLING January 22, 2019 Yes Active Formoterol ([id number]) Allergy Severe HEADACHES, THROAT SWELLING January 22, 2019 Yes Active Atorvastatin ([id number]) Allergy Severe LEG CRAMPS January 22, 2019 Yes Active Medications Medication Status Dose Units Route Sig Qty Days Start Date End Date Instructions Albuterol Active 2 RESPIRATORY (INHALATION) Every 4-6 Hours As Needed as needed for Wheezing / Shortness Of Breath 1 30 Aspirin Active 1 ORAL Daily 30 30 Clopidogrel Bisulfate Active 1 ORAL Daily 30 30 Cyanocobalamin Active 1 ORAL Daily 30 30 Fenofibrate Active 1 ORAL Daily 30 30 Fluticasone Propionate (Nasal) Active 2 NASAL Daily 9.9 30 Isosorbide Mononitrate Active 60 ORAL Twice A Day 60 30 Levoxyl Active 50 ORAL Daily Lisinopril & Hydrochlorothiazide * Active 1 ORAL Daily 30 30 Losartan Potassium Discontinued 50 ORAL Twice A Day for Hypertension November 26, 2019 11:30pm (One-Time) Methocarbamol Active 500 ORAL Four Times Daily As Needed Metoprolol Succinate Active 1 ORAL Daily 30 30 Multivitamins Active 1 ORAL Daily 30 30 Nitrofurantoin * Active 1 ORAL Twice A Day 20 Nitrostat Active 0.4 ORAL as needed for Chest Pain Olopatadine Hcl Active 1 OPHTHALMIC Daily 2.5 [place]-3 Fatty Acids Active 1 ORAL Daily 30 30 Ranitidine Hcl Active 150 ORAL Twice A Day 60 30 Sertraline Hcl Active 1 ORAL Daily 30 30 Vitamin E Active 400 ORAL Once Daily Problems Active Problems Medical Problem Onset Date Status Chronic pain of right upper extremity Active Depression Active GERD (gastroesophageal reflux disease) Active HLD (hyperlipidemia) Active HTN (hypertension) Active Impingement syndrome of right shoulder Active Rotator cuff tear arthropathy of right shoulder Active Inactive/Resolved Problems Medical Problem Onset Date Status Chest pain Resolved Erythematous papules of skin Resolved Fever Resolved Fever Resolved Gram-positive cocci bacteremia Resolved Headache Resolved Hyperglycemia Resolved Hypertension Resolved Maculopapular rash Resolved Positive blood culture Resolved UTI (urinary tract infection) Resolved Procedures Procedure Date Performed Status X-ray of chest, single view November 26, 2019 completed Computed tomography of head without contrast November 26, 2019 completed Relevant Diagnostic Tests and/or Laboratory Data Laboratory Results Test Date/Time Result Interpretation Reference Range Result Comment Performing Site White Blood Count November 26, 2019 10:14pm 9.4 4.0-11.5 [facility], [address] [place], [place] [id number] Red Blood Count November 26, 2019 10:14pm 4.69 3.80-5.20 [facility], [address] [place], [place] [id number] Hemoglobin November 26, 2019 10:14pm 13.5 10.5-15.7 [facility], [address] [place], [place] [id number] Hematocrit November 26, 2019 10:14pm 41.2 34.0-50.0 [facility], [address] [place], [place] [id number] Mean Corpuscular Volume November 26, 2019 10:14pm 87.8 86-100 [facility], [address] [place], [place] [id number] Mean Corpuscular Hemoglobin November 26, 2019 10:14pm 28.8 26.2-33.4 [facility], [address] [place], [place] [id number] Mean Corpuscular Hemoglobin Concent November 26, 2019 10:14pm 32.8 30-34 [facility], [address] [place], [place] [id number] Red Cell Distribution Width November 26, 2019 10:14pm 12.6 12.0-15.5 [facility], [address] [place] [address] Platelet Count November 26, 2019 10:14pm 351 165-450 [facility], [address] [place], [place] [id number] Mean Platelet Volume November 26, 2019 10:14pm 8.5 9.4-12.6 [facility], [address] [place], [place] [id number] Neutrophils (%) (Auto) November 26, 2019 10:14pm 53.4 44.4-80.1 [facility], [address] [place] [address] Immature Granulocyte % (Auto) November 26, 2019 10:14pm 0.2 0.0-0.4 [facility], [address] [place], [place] [id number] Lymphocytes (%) (Auto) November 26, 2019 10:14pm 36.1 10.0-50.0 [facility], [address] [place], [place] [id number] Monocytes (%) (Auto) November 26, 2019 10:14pm 5.9 3.6-12.0 [facility], [address] [place] [address] Eosinophils (%) (Auto) November 26, 2019 10:14pm 3.5 0.0-5.4 [facility], [address] [place], [place] [id number] Basophils (%) (Auto) November 26, 2019 10:14pm 0.9 0.1-1.2 [facility], [address] [place] [address] Neutrophils # (Auto) November 26, 2019 10:14pm 5.01 1.56-6.13 [facility], [address] [place] [address] Absolute Immature Granulocyte (auto November 26, 2019 10:14pm 0.0 0.0-0.03 [facility], [address] [place] [address] Lymphocytes # (Auto) November 26, 2019 10:14pm 3.4 1.18-3.74 [facility], [address] [place] [address] Monocytes # (Auto) November 26, 2019 10:14pm 0.55 0.24-0.86 [facility], [address] [place] [address] Eosinophils # (Auto) November 26, 2019 10:14pm 0.33 0.04-0.36 [facility], [address] [place] [address] Basophils # (Auto) November 26, 2019 10:14pm 0.08 0.01-0.08 [facility], [address] [place] [address] Nucleated Red Blood Cells % November 26, 2019 10:14pm 0 0-0.2 [facility], [address] [place] [address] Nucleated Red Blood Cells # November 26, 2019 10:14pm 0 0 [facility], [address] [place], [place] [id number] D-Dimer November 26, 2019 10:14pm 416 <500 [facility], [address] [place], [place] [id number] Prothrombin Time November 26, 2019 10:14pm 10.2 10.3-12.3 THERAPEUTIC LEVEL: 1.5 to 1.9 times normal range of PT [facility], [address] [place] [address] Prothromb Time International Ratio November 26, 2019 10:14pm 0.94 Recommended therapeutic range for patients receiving warfarin (coumadin) therapy: INR is 2.0 to 3.0Recommended range for patients with mechanical prosthetic heart valves: INR is 2.5 to 3.5 [facility], [address] [place], [place] [id number] Activated Partial Thromboplast Time November 26, 2019 10:14pm 32.5 22.5-37.0 [facility], [address] [place], [place] [id number] Random Glucose November 26, 2019 10:14pm 113 82-115 [facility], [address] [place], [place] [id number] Blood Urea Nitrogen November 26, 2019 10:14pm 8 8-23 [facility], [address] [place], [place] [id number] Serum Osmolality November 26, 2019 10:14pm 269 280-300 [facility], [address] [place], [place] [id number] Creatinine November 26, 2019 10:14pm 0.7 0.50-0.90 [facility], [address] [place] [address] Glomerular Filtration Rate Calc November 26, 2019 10:14pm > 60.00 GFR RESULTS ARE REPORTED IN mL/min/1.73m2.Normal GFR: >60mL/minModerately decreased GFR: 30-59 mL/minSeverely decreased GFR: 15-29 mL/minKidney Failure (or Dialysis): <15 mL/minThe calculated eGFR is not valid for patients younger than 18 years or older than 75 years. [facility], [address] [place], [place] [id number] BUN/Creatinine Ratio November 26, 2019 10:14pm 11.4 12-20 [facility], [address] [place], [place] [id number] Sodium Level November 26, 2019 10:14pm 135 135-145 [facility], [address] [place], [place] [id number] Potassium Level November 26, 2019 10:14pm 3.6 3.5-5.2 [facility], [address] [place], [place] [id number] Chloride Level November 26, 2019 10:14pm 97 98-108 [facility], [address] [place], [place] [id number] Carbon Dioxide Level November 26, 2019 10:14pm 28 21-32 [facility], [address] [place] [address] Anion Gap November 26, 2019 10:14pm 13.6 12-20 [facility], [address] [place], [place] [id number] Calcium Level November 26, 2019 10:14pm 9.7 8.8-10.2 [facility], [address] [place] [address] Total Protein November 26, 2019 10:14pm 6.5 6.6-8.7 [facility], [address] [place] [address] Albumin November 26, 2019 10:14pm 4.4 3.5-5.2 [facility], [address] [place], [place] [id number] Globulin November 26, 2019 10:14pm 2.1 [facility], [address] [place] [address] Albumin/Globulin Ratio November 26, 2019 10:14pm 2.1 >1.0 [facility], [address] [place] [address] Total Bilirubin November 26, 2019 10:14pm < 0.3 0.0-1.2 [facility], [address] [place] [address] Aspartate Amino Transf (AST/SGOT) November 26, 2019 10:14pm 8 15-32 [facility], [address] [place], [place] [id number] Alanine Aminotransferase (ALT/SGPT) November 26, 2019 10:14pm 7 0-33 [facility], [address] [place] [address] ZS-Hbu-X-Type Natriuretic Peptide November 26, 2019 10:14pm 126 0-125 [facility], [address] [place], [place] [id number] Total Alkaline Phosphatase November 26, 2019 10:14pm 98 35-105 [facility], [address] [place], [place] [address] Creatine Kinase November 26, 2019 10:14pm 81 20-180 [facility], [address] [place], [place] [id number] Troponin I November 26, 2019 10:14pm < 0.30 0.0-0.5 Published clinical studies have shown elevations of cTnI in patients with myocardial injury, as seen in unstable angina pectoris, cardiac contusions, and heart transplants. Elevations have also been seen in patients with rhabdomyolysis and polymyositis.Elevated troponin levels point to myocardial injury, but are not necessarily indicative of an ischemic mechanism. The term PA should be used when there is evidence of cardiac damage, as detected by marker proteins in a clinical setting consistent with myocardial ischemia. If the clinical circumstance suggests that an ischemic mechanism is unlikely, other causes of cardiac injury should be considered.For diagnostic purposes, the results should always be assessed in conjunction with the patient's medical history, clinical examination and other findings. [facility], [address] [place] [address] Creatine Kinase MB November 26, 2019 10:14pm 2.1 0.0-3.6 DIAGNOSTIC CITERIA: CKMB CKMB RELATIVE INDEX SUGGESTIVE OF NON-AMI < or=5 N/AGRAY ZONE (INCONCLUSIVE) > 5 < or=4SUGGESTIVE OF AMI >5 > 4 [facility], [address] [place] [address] Health Concerns No known health concerns documented Advance Directives Advance Directive Response Recorded Date/Time Advance Directive on File Yes November 26, 2019 9:52pm Name of Surrogate/Decision Maker DAUGHTER-ISIDRO DELGADO November 26, 2019 9:51pm Chief Complaint and Reason for Visit Chief Complaint Chest Pain Reason for Visit [id number] Encounters Encounter Location(s) Arrival/Admit Date Discharge/Depart Date Provider(s) Departed Emergency Room [facility] November 26, 2019 9:46pm November 26, 2019 11:47pm JANENE DHALIWAL MD Assessments No Assessments Information Available Functional Status No Functional Status information available Goals No Goals Information Available Immunizations No Immunization Information Available Mental Status No Mental Status Information Available Medical Equipment No Medical Equipment Information available Insurance Providers Guarantor Mimi Taylor Address [address] [facility] [address] Contact Info. Home Phone: Payer Policy Id Coverage Id Subscriber's Name Subscriber Id Effective Date Expiration Date Cigna Other [id number] Mimi Taylor [id number] 2016 Medicare [id number] Mimi Taylor [id number] Plan of Treatment Recommend that you take the Losartan 50 mg 2 times daily and continue recording your pressures, and consult with your primary doctor with those recordings. Follow up with your primary doctor in 2 days for re check of your blood pressures, or otherwise return to the Ed if your condition worsens. Future Tests Future scheduled test information is unavailable Pending Tests Pending diagnostic test information is unavailable Future Visits Future appointment information is unavailable Referrals to Other Providers Reason for Referral Referral Start Date Provider Provider Contact Information Provider Address TITI FRANCO MD Work Phone: [address] [place] [address] Future Procedures Future procedure information is unavailable Future Medications Future medication information is unavailable Patient Instructions Hypertension, Cicu-tf-Zylt General Headache Without Cause, Fatx-pe-Fqya Social History Smoking Status Status Date of Observation Ex-smoker (finding) November 26, 2019 9:52pm Observation Status Observation Response Date of Response Hx Physical Abuse No November 26, 2019 9:52pm Assigned Sex Female Vital Signs Vital Reading Result Collection Date/Time
--- OUTSIDE RECORDS SUMMARY | 2019-12-14 19:38 | XMS REPORT | Summary of Care ---
Author Author [facility] - Health Organization [facility] - Health Address Unknown Phone Unavailable Care Team Providers Care Cable Weaver Name Role Phone Arleen Jimenez MD PCP Encounter Details Care Team Description Date Type Department Arleen Jimenez MD [address] [place] [id number] Essential hypertension (Primary Dx) 07/30/2019 Patient Secure [address] [address] Allergies Comments Active Allergy Reactions [...] as of this encounter (statuses as of 07/30/2019) Medications End Date Status Medication Sig Dispensed [...] 10 mg by 0 mouth daily. Active nitroglycerin 0.[address] 0.4 [...] (two) times Coronary artery disease daily. involving [place] heart with angina pectoris, unspecified vessel or lesion type Active SERTraline 50 mg Take 1 tablet 90 tablet 1 tabletIndications: by mouth 9 Agitation, Irritability daily. Active lisinopril-hydrochlorothi Take 1 tablet 90 tablet 1 azide 10-12.5 mg per by mouth 9 tabletIndications: daily. Essential hypertension 07/30/2019 Discontinued lisinopril-hydrochlorothi Take 1 tablet 0 azide 10-12.5 mg per by mouth tablet daily. documented as of this encounter (statuses as of 07/30/2019) Active Problems Problem Noted Date Thrombocytosis 01/13/2019 [...] as of this encounter (statuses as of 07/30/2019) Resolved Problems Problem Noted Date Resolved Date Therapeutic opioid induced constipation 07/21/2017 01/13/2019 Right hip pain 06/14/2016 01/13/2019 documented as of this encounter (statuses as of 07/30/2019) Immunizations Name Administration Dates Next Due Influenza [...] Description Date Type Specialty Tiffany Ponce MD [address] [place] [address] [place] [address] [phone] 09/22/2019 Office Visit Obstetrics & Gynecology Health [...] filedocumented in this encounter Visit Diagnoses Diagnosis Essential hypertension - Primary Unspecified essential hypertension documented in this encounter Insurance Type Payer Benefit Subscriber ID Effective Phone Address Plan / Dates Group Medicare MEDICARE MEDICARE xxxxxxxxxxx 2016-P [phone] resent [id number] [place] [phone] HMO/PPO/POS CIGNA CIGNA [id number] 2016- GENERIC Present documented as of this encounter
--- OUTSIDE RECORDS SUMMARY | 2019-12-14 19:38 | XMS REPORT | Summary of Care ---
Author Author [facility] - Health Organization [facility] - Health Address Unknown Phone Unavailable Care Team Providers Care Business Process Analyst Name Role Phone Arleen Jimenez MD PCP Reason for Visit * Reason Comments Assessment Encounter Details Care Team Description Date Type Department Devin Hou MD [address] [place] [address] Assessment 07/14/2019 Telephone [facility] Orthopaedic Surgery[address] [place] [address] Allergies Comments Active Allergy Reactions Severity [...] as of this encounter (statuses as of 07/20/2019) Medications End Date Status Medication Sig Dispensed [...] (two) times Coronary artery disease daily. involving [place] heart with angina pectoris, unspecified vessel or lesion type Active SERTraline 50 mg Take 1 tablet 90 tablet 1 tabletIndications: by mouth 9 Agitation, Irritability daily. documented as of this encounter (statuses as of 07/20/2019) Active Problems Problem Noted Date Thrombocytosis 01/13/2019 [...] as of this encounter (statuses as of 07/20/2019) Resolved Problems Problem Noted Date Resolved Date Therapeutic opioid induced constipation 07/21/2017 01/13/2019 Right hip pain 06/14/2016 01/13/2019 documented as of this encounter (statuses as of 07/20/2019) Immunizations Name Administration Dates Next Due Influenza [...] Description Date Type Specialty Tiffany Ponce MD [address] [place] [address] [place] [address] [phone] 09/22/2019 Office Visit Obstetrics & Gynecology Health [...] Dates Group Medicare MEDICARE MEDICARE xxxxxxxxxxx 2016-P [phone] resent [id number] [place] [phone] HMO/PPO/POS CIGNA CIGNA [id number] 2016- GENERIC Present documented as of this encounter
== END | disposition home or self-care (01) ==
LOC: OR 10:35
PROVIDERS: ATTEND Ophthalmology
DX: H02.834 Dermatochalasis of left upper eyelid (principal); H02.831 Dermatochalasis of right upper eyelid; I25.10 Atherosclerotic heart disease of native coronary artery without angina pectoris; I10 Essential (primary) hypertension; E03.9 Hypothyroidism, unspecified; E78.5 Hyperlipidemia, unspecified; M79.10 Myalgia, unspecified site; K21.9 Gastro-esophageal reflux disease without esophagitis; Z79.82 Long term (current) use of aspirin; Z79.02 Long term (current) use of antithrombotics/antiplatelets
CPT/HCPCS: 15823; J2001 ×2; J2250